=== PATIENT | female | born 1965 | race Caucasian/White ===

== ENCOUNTER 2018-12-27 13:29 | Inpatient (IN) | payer MEDICARE, OTHER ==
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
[2018-12-27 15:04] LABS: Amphetamine Screen,Urine Not Detected (NotDetected); Barbiturate Screen,Urine Not Detected (NotDetected); Benzodiazepines Screen,Urine Detected (NotDetected); Cocaine Screen,Urine Not Detected (NotDetected); Methadone Screen, Urine Not Detected (NotDetected); Opiate Screen,Urine Not Detected (NotDetected); Oxycodone Screen, Urine Not Detected (NotDetected); Phencyclidine Screen,Urine Not Detected (NotDetected); Tricyclic Antidepressant,Urine Not Detected (NotDetected); Urn Cannabinoid Scrn Detected (NotDetected)
[2018-12-27] MEDS: FOLIC ACID 1 MG TAB PO SCH (18:05)
[2018-12-27] MEDS: THIAMINE 100 MG TAB PO SCH (18:05)
[2018-12-27] MEDS: NICOTINE 21MG/24HR PATCH TRANSDERM SCH (18:05)
[2018-12-27] MEDS: ACETAMINOPHEN TAB 325 MG TAB PO PRN ×2 (18:05→22:04)
[2018-12-27] MEDS: MAG HYDROX/AL HYDROX/SIMETH 30 ML CUP PO PRN (20:45)
[2018-12-27] MEDS: LORazepam 2 MG/ML INJ IM PRN (20:55)
[2018-12-27] MEDS: LORazepam 1 MG TAB PO SCH (22:04)
[2018-12-28] MEDS: LORazepam 2 MG/ML INJ IM PRN (06:55)
[2018-12-28] MEDS: NICOTINE 21MG/24HR PATCH TRANSDERM SCH (09:03)
[2018-12-28] MEDS: THIAMINE 100 MG TAB PO SCH (09:04)
[2018-12-28] MEDS: FOLIC ACID 1 MG TAB PO SCH (09:04)
[2018-12-28] MEDS: LORazepam 1 MG TAB PO SCH (09:04)
[2018-12-28] MEDS: ACETAMINOPHEN TAB 325 MG TAB PO PRN ×2 (09:05→16:33)
[2018-12-28 09:13] LABS: Basophils % (A) 1 %; Eosinophils # (A) 0.1 k/uL (0-0.7); Eosinophils % (A) 2 %; HCT 45.4 % (34.0-46.0); HGB 14.5 gm/dL (11.4-16.0); Lymphocytes % (A) 29 %; MCH 31.2 pg (25.0-35.0); MCV 97.7 fL (80.0-100.0); Mean Platelet Volume 6.9; Monocytes # (A) 0.5 k/uL (0-1.0); Monocytes % (A) 7 %; Neutrophils % (A) 58 %; Platelet Count 323 k/uL (150-450); RBC 4.65 m/uL (3.80-5.40); RDW 13.8 % (11.5-15.5); WBC 6.9 k/uL (3.8-10.6)
[2018-12-28 09:31] LABS: ALT 27 U/L (9-52); AST 30 U/L (14-36); African American GFR (CKD) >90 (>60 ml/min/1.73 sqM); Albumin 4.4 g/dL (3.5-5.0); Alkaline Phosphatase 86 U/L (38-126); Anion Gap 7 mmol/L; Blood Urea Nitrogen 15 mg/dL (7-17); Calcium 9.4 mg/dL (8.4-10.2); Carbon Dioxide 29 mmol/L (22-30); Chloride 102 mmol/L (98-107); Cholesterol 194 mg/dL (<200); Glucose 166 mg/dL (74-99); HDL Cholesterol 103 mg/dL (40-60); LDL Cholesterol,Calculated 75 mg/dL (0-99); Potassium 4.9 mmol/L (3.5-5.1); Sodium 138 mmol/L (137-145); Total Bilirubin 0.7 mg/dL (0.2-1.3); Total Protein 7.4 g/dL (6.3-8.2); Triglycerides 82 mg/dL (<150)
[2018-12-28] MEDS: chlordiazePOXIDE 25 MG CAP PO SCH ×3 (12:34→20:42)
[2018-12-28] MEDS: MULTIVITAMINS, THERA 1 EACH TAB PO SCH (12:34)
[2018-12-28] MEDS: LORazepam 1 MG TAB PO PRN ×4 (12:36→22:47)
[2018-12-28] MEDS: ALBUTEROL INHALER 60 PUFF/8 GM INHALER INHALATION PRN (12:37)
--- NOTE | 2018-12-28 13:56 | P.HP ---
Psychiatric H&P - . H&P Date: 12/28/18 History & Physical: Allergies Allergy/AdvReac Type Severity Reaction Status Date / Time erythromycin base Allergy Unknown Verified 12/27/18 14:44 Penicillins Allergy Rash/Hives Verified 12/27/18 14:44 Sulfa (Sulfonamide Allergy Unknown Verified 12/27/18 14:44 Antibiotics) venom-honey bee Allergy Anaphylaxis Verified 12/27/18 14:44 [bee venom (honey bee)] Vital Signs Temp 97.5 F L 12/28/18 06:33 Pulse 118 H 12/28/18 12:36 Resp 18 12/28/18 10:06 BP 135/56 12/28/18 12:36 Pulse Ox 97 12/27/18 13:41 Intake & Output 12/27/18 12/28/18 12/28/18 18:59 06:59 18:59 Weight 70.959 kg Laboratory Last Values WBC 6.9 k/uL (3.8-10.6) 12/28/18 08:50 RBC 4.65 m/uL (3.80-5.40) 12/28/18 08:50 Hgb 14.5 gm/dL (11.4-16.0) 12/28/18 08:50 Hct 45.4 % (34.0-46.0) 12/28/18 08:50 MCV 97.7 fL (80.0-100.0) 12/28/18 08:50 MCH 31.2 pg (25.0-35.0) 12/28/18 08:50 MCHC 32.0 g/dL (31.0-37.0) 12/28/18 08:50 RDW 13.8 % (11.5-15.5) 12/28/18 08:50 Plt Count 323 k/uL (150-450) 12/28/18 08:50 Neutrophils % 58 % 12/28/18 08:50 Lymphocytes % 29 % 12/28/18 08:50 Monocytes % 7 % 12/28/18 08:50 Eosinophils % 2 % 12/28/18 08:50 Basophils % 1 % 12/28/18 08:50 Neutrophils # 4.0 k/uL (1.3-7.7) 12/28/18 08:50 Lymphocytes # 2.0 k/uL (1.0-4.8) 12/28/18 08:50 Monocytes # 0.5 k/uL (0-1.0) 12/28/18 08:50 Eosinophils # 0.1 k/uL (0-0.7) 12/28/18 08:50 Basophils # 0.0 k/uL (0-0.2) 12/28/18 08:50 Sodium 138 mmol/L (137-145) 12/28/18 08:50 Potassium 4.9 mmol/L (3.5-5.1) 12/28/18 08:50 Chloride 102 mmol/L (98-107) 12/28/18 08:50 Carbon Dioxide 29 mmol/L (22-30) 12/28/18 08:50 Anion Gap 7 mmol/L 12/28/18 08:50 BUN 15 mg/dL (7-17) 12/28/18 08:50 Creatinine 0.64 mg/dL (0.52-1.04) 12/28/18 08:50 Est GFR (CKD-EPI)AfAm >90 (>60 ml/min/1.73 sqM) 12/28/18 08:50 Est GFR (CKD-EPI)NonAf >90 (>60 ml/min/1.73 sqM) 12/28/18 08:50 Glucose 166 mg/dL (74-99) H 12/28/18 08:50 Calcium 9.4 mg/dL (8.4-10.2) 12/28/18 08:50 Total Bilirubin 0.7 mg/dL (0.2-1.3) 12/28/18 08:50 AST 30 U/L (14-36) 12/28/18 08:50 ALT 27 U/L (9-52) 12/28/18 08:50 Alkaline Phosphatase 86 U/L (38-126) 12/28/18 08:50 Total Protein 7.4 g/dL (6.3-8.2) 12/28/18 08:50 Albumin 4.4 g/dL (3.5-5.0) 12/28/18 08:50 Triglycerides 82 mg/dL (<150) 12/28/18 08:50 Cholesterol 194 mg/dL (<200) 12/28/18 08:50 LDL Cholesterol, Calc 75 mg/dL (0-99) 12/28/18 08:50 HDL Cholesterol 103 mg/dL (40-60) H 12/28/18 08:50 TSH 4.190 mIU/L (0.465-4.680) 12/28/18 08:50 Urine Opiates Screen Not Detected (NotDetected) 12/27/18 14:22 Ur Oxycodone Screen Not Detected (NotDetected) 12/27/18 14:22 Urine Methadone Screen Not Detected (NotDetected) 12/27/18 14:22 Ur Propoxyphene Screen Not Detected (NotDetected) 12/27/18 14:22 Ur Barbiturates Screen Not Detected (NotDetected) 12/27/18 14:22 U Tricyclic Antidepress Not Detected (NotDetected) 12/27/18 14:22 Ur Phencyclidine Scrn Not Detected (NotDetected) 12/27/18 14:22 Ur Amphetamines Screen Not Detected (NotDetected) 12/27/18 14:22 U Methamphetamines Scrn Not Detected (NotDetected) 12/27/18 14:22 U Benzodiazepines Scrn Detected (NotDetected) H 12/27/18 14:22 Urine Cocaine Screen Not Detected (NotDetected) 12/27/18 14:22 U Marijuana (THC) Screen Detected (NotDetected) H 12/27/18 14:22 12/28/18 12:59 IDENTIFYING DATA: Patient is a 53-year-old female with a chronic history of depression and alcohol use who currently lives with her sister in a house has 2 kids and 4 grandchildren is and currently collecting SSD HPI: Patient presented to the hospital was brought in by her sister due to patient's increased alcohol intake along with depression and suicidal ideations. Patient stated that for the past year she has been increasing in her alcoholic intake stating that he is drinking approximately 3-4 X 25 ounce beers in a day along with 1 pint of vodka every 2 days. She states that she is beginning to feel depressed and hopeless/helpless and feeling overwhelmed. She states that she became belligerent yesterday as she was intoxicated and attempted to call her sister who did not answer the phone and states that after that she felt even more depressed and wanted to come to the hospital for evaluation. Patient states that for the past year she has dealt with her friends dying in [place], whom she was taking good care of. Patient also claims that her best friend was recently diagnosed with cancer and she is attempting to help her out and feels worn out. Patient claims that she is taking on all the stressors and feels like she has no time or energy for herself. Patient claims that she is both depressed and anxious and was tearful and emotional during the interview. Patient claims that her last drink of alcohol was yesterday morning and although she denies any previous history of delirium tremens or seizures from withdrawal she is experiencing significant tremors and anxiety at this time. Patient claims that she wants to live for her family and also for her kids and grandchildren. At this time patient claims that her sleep is poor and her appetite is poor as well. Patient denies any suicidal or homicidal ideations intent or plan. At this time patient denies any auditory or visual hallucinations. Patient denies any flight of ideas racing thoughts and increased in goal directed behavior. Patient admits to also using marijuana approximately 1-2 joints per day for sleep and pain and also claims to be smoking cigarettes 1 pack a day PAST PSYCHIATRIC HISTORY: Patient admits to 3 previous hospitalizations in the past 1997, 2008 and 2014 2 of which were in [place]. Patient admitted to being on Cymbalta Xanax and Klonopin in the past for her anxiety and depression. Patient claims that she has been off psychiatric medications for over a year and does not follow up with a psychiatrist. PMH: COPD ALLERGIES: As per EMR CHEMICAL DEPENDENCY HISTORY: As per HPI FAMILY PSYCHIATRIC/SUBSTANCE USE HISTORY: Claims that her father suffered from depression and her sister suffers from anxiety SOCIAL HISTORY: She claims that she was born and raised in [facility] and has completed high school. 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 She is currently has 2 kids and 4 grandchildren and lives with her sister in a house and collects SSD. MENTAL STATUS EXAM: General Appearance: [Patient appears to be stated age is alert, pleasant, and cooperative.] Patient has poor hygiene and poor grooming and appears to be t earful. Behavior: [Patient is calmly seated without any agitated behavior.] Appears to be tremulous Speech: Patient's speech is fluent and nonpressured. Mood/Affect: Patient reports their mood is depressed, affect is congruent and constricted, tearful Suicidality/Homicidality: Patient denies having any suicidal or homicidal ideation intent or plan. Perceptions: Patient denies any auditory or visual hallucinations. Though content/process: There is no evidence of any delusional thought content and thought process is linear and goal-directed. Depressive content. Memory and concentration: AOX3, grossly intact for the purposes of this session. Can spell "WORLD" backwards Judgment and insight: Poor STRENGTHS/WEAKNESSES: Patient has good social support. Patient also has poor coping skills. INTELLECT: Average intellect IMPRESSIONS: Depressive disorder unspecified Alcohol use disorder, currently in withdrawal PLAN: -Patient is admitted under [voluntary] status to MHU for stabilization of psychiatric symptoms and safety. Patient signed adult voluntary form and medication consent and is placed in patient's chart. -Medications : Will start patient on and Zoloft 50 mg daily at bedtime for mood/anxiety. Melatonin 3 mg daily at bedtime for insomnia. We'll also start patient on standing dose of Librium 25 mg 4 times a day for alcohol withdrawal. Patient is currently on CIWA every 2 hours with Ativan when necessary. [-Started thiamine, MVM for etoh use] [-Patient was counselled on substance abuse and desired to cut back on use]. Will speak with patient more about different treatment options at a later time. -Patient was informed of the risks, benefits and side effects of the medication and patient verbally consented to taking the medications. Patient signed med consent form and was placed in chart. -NRT -nicotine patch - on board for discharge planning 12/28/18 13:44
--- NOTE | 2018-12-28 14:50 | P.MDCNMH ---
History of Present Illness H&P Date: 12/28/18 Chief Complaint: Medical management This is a 53-year-old male patient of Dr. Jaime although she has not followed up with Dr. Jaime in some time. She has a past medical history of mild intermittent asthma, COPD, fibromyalgia, generalized anxiety disorder, recurrent depression, tobacco use and dependence, alcohol abuse. The patient gives history of drinking heavily for the past 10-15 years. She usually drinks beer but sometimes will drink half to a full pint of liquor. She states she has been without alcohol for 2 days now and feels very anxious with nausea for the past couple days. She complains of her legs feeling jumpy. She has been on iron which may help. In the past, patient has tried abstinence from alcohol and she only makes it about 3-4 days and then goes back to drinking. She has tried AA and does not like the meetings. She is also complaining of feeling shaky with cold sweats and she is tearful during evaluation. She states that she started drinking heavily when her mother and then her stop father had and last week her dog . She states she is caring for a girlfriend that has cancer and she does not spend time for herself and when she does have time she chooses to drink. Patient came into [facility] emergency center for evaluation. Patient was found to be sinus tachycardia. X-ray of the right elbow showed no acute process. Urine drug screen detected benzodiazepines and marijuana. CBC was unremarkable. Blood sugar 166. Triglycerides 82, cholesterol 194, LDL 75, HDL 103, TSH 4.190. Patient was subsequently admitted to the mental health unit. Review of Systems Constitutional: Reports fatigue, Reports malaise, Reports poor appetite, Reports sweats, Reports weakness Eyes: denies blurred vision, denies pain Ears, nose, mouth and throat: Denies dental pain, Denies nasal congestion, Denies nasal discharge, Denies vertigo Cardiovascular: Denies chest pain, Denies dyspnea on exertion, Denies edema, Denies leg edema, Denies shortness of breath, Denies syncope Respiratory: Denies congestion, Denies cough, Denies cough with sputum, Denies dyspnea, Denies excessive sputum, Denies hemoptysis, Denies home oxygen, Denies wheezing Gastrointestinal: Reports loss of appetite, Reports nausea, Denies abdominal pain, Denies diarrhea, Denies vomiting Genitourinary: Denies dysuria, Denies hematuria, Denies urgency, Denies urinary frequency Musculoskeletal: Denies frequent falls, Denies gait dysfunction, Denies muscle weakness, Denies myalgias Integumentary: Denies pruritus, Denies rash Neurological: Denies change in mentation, Denies confusion, Denies gait dysfunction, Denies numbness, Denies seizures, Denies weakness Psychiatric: Reports anxiety, Reports depression, Denies disorientation, Denies hallucinations, Denies suicidal ideation Endocrine: Denies fatigue, Denies weight change Past Medical History Past Medical History: Asthma, COPD, Fibromyalgia Additional Past Medical History / Comment(s): anxiety History of Any Multi-Drug Resistant Organisms: MRSA Date of last positivie culture/infection: 1999 MDRO Source:: buttocks Past Surgical History: Section, Hysterectomy, Tubal Ligation Past Anesthesia/Blood Transfusion Reactions: No Reported Reaction Past Psychological History: Anxiety, Bipolar, Depression Smoking Status: Heavy tobacco smoker Past Alcohol Use History: Daily Additional Past Alcohol Use History / Comment(s): Patient is a smoker of 1 PPD for 40-45 years, marijuana joint 1 per day for pain, no illicit drug use. Past Drug Use History: Marijuana - Past Family History Father Family Medical History: Cancer (Throat) Additional Family Medical History / Comment(s): Father from throat cancer. He also suffered from depression and attempted suicide. Mother Family Medical History: Congestive Heart Failure (CHF), COPD Additional Family Medical History / Comment(s): Mother is from heart failure with probable history of bipolar disorder. Sister(s) Family Medical History: COPD Additional Family Medical History / Comment(s): Patient has 2 sisters one with COPD and one with depression. Patient does not have any brothers. Daughter(s) Family Medical History: Asthma Son(s) Family Medical History: No Reported History Medications and Allergies Home Medications Medication Instructions Recorded Confirmed Type ALPRAZolam [Xanax] 0.5 mg PO ONCE 12/27/18 12/27/18 History Ibuprofen [Motrin] 800 mg PO DAILY PRN 12/27/18 12/27/18 History diphenhydrAMINE [Benadryl] 25 mg PO HS PRN 12/27/18 12/27/18 History Allergies Allergy/AdvReac Type Severity Reaction Status Date / Time erythromycin base Allergy Unknown Verified 12/27/18 14:44 Penicillins Allergy Rash/Hives Verified 12/27/18 14:44 Sulfa (Sulfonamide Allergy Unknown Verified 12/27/18 14:44 Antibiotics) venom-honey bee Allergy Anaphylaxis Verified 12/27/18 14:44 [bee venom (honey bee)] Physical Exam Vitals: Vital Signs Temp Pulse Pulse Resp BP BP BP 12/28/18 10:06 117 H 18 129/82 12/28/18 06:33 97.5 F L 76 18 145/63 12/27/18 20:47 116 H 20 137/67 12/27/18 17:10 97.9 F 103 H 18 101/74 12/27/18 15:10 97.9 F 103 H 18 101/74 12/27/18 13:41 98.5 F 127 H 18 138/83 Pulse Ox 12/28/18 10:06 12/28/18 06:33 12/27/18 20:47 12/27/18 17:10 12/27/18 15:10 12/27/18 13:41 97 Intake and Output 12/27/18 12/28/18 12/28/18 22:59 06:59 14:59 Other: Weight 70.959 kg Gen: This is a 53-year-old female. Patient is tearful during part of exam. Otherwise, no acute distress is noted. HEENT: Head is atraumatic, normocephalic. Pupils equal, round. Sclerae is anicteric. NECK: Supple. No JVD. No lymphadenopathy. No thyromegaly. LUNGS: Clear to auscultation. No wheezes or rhonchi. No intercostal retract ions. HEART: Regular rate and rhythm. No murmur. ABDOMEN: Soft. Bowel sounds are present. No masses. No tenderness. EXTREMITIES: No pedal edema. No calf tenderness. NEUROLOGICAL: Patient is awake, alert and oriented x3. Cranial nerves 2 through 12 are grossly intact. Cranial Nerve Examination - Cranial Nerves Cranial Nerve I- Olfactory: Intact Cranial Nerve II- Optic: Intact Cranial Nerve III- Oculomotor: Intact Cranial Nerve IV- Trochlear: Intact Cranial Nerve V- Trigeminal: Intact Cranial Nerve - Abducens: Intact Cranial Nerve VII- Facial: Intact Cranial Nerve VIII- Auditory: Intact Cranial Nerve IX- Glossopharyngeal: Intact Cranial Nerve X- Vagus: Intact Cranial Nerve XI- Accessory: Intact Cranial Nerve XII- Hypoglossal: Intact Results CBC & Chem 7: 12/28/18 08:50 12/28/18 08:50 Labs: Abnormal Lab Results - Last 24 Hours (Table) 12/27/18 12/28/18 Range/Units 14:22 08:50 Glucose 166 H (74-99) mg/dL HDL Cholesterol 103 H (40-60) mg/dL U Benzodiazepines Scrn Detected H (NotDetected) U Marijuana (THC) Screen Detected H (NotDetected) Assessment and Plan Plan: 1. Alcohol abuse. Continue thiamine 100 mg daily. Ativan for CIWA protocol, Librium 25 mg 4 times daily. 2. Recurrent depression. Patient admitted to the mental health unit. Continue current plan of care 3. Tobacco use and dependence. Nicotine patch. 4. Elevated blood sugar without history of DM. Check hemoglobin A1c. 5. COPD without exacerbation and mild intermittent asthma. Albuterol inhaler, symbicort inhaler. Discharge plan: Return home. Patient follow-up with Dr. Jaime after discharge. Impression and plan of care have been directed as dictated by the signing physician. Hina Patrick nurse practitioner acting as scribe for signing physician.
[2018-12-28 19:53] LABS: Hemoglobin A1C 5.6 % (4.0-6.0)
[2018-12-28] MEDS: MELATONIN 3 MG TABLET PO SCH (20:42)
[2018-12-28] MEDS: SYMBICORT 160-4.5 MCG INHALER INHALATION SCH (20:45)
[2018-12-28] MEDS ORDERED: SERTRALINE 50 MG TAB PO SCH (21:00)
[2018-12-29] MEDS: LORazepam 1 MG TAB PO PRN ×6 (01:21→22:51)
[2018-12-29] MEDS: SYMBICORT 160-4.5 MCG INHALER INHALATION SCH ×2 (08:13→20:57)
[2018-12-29] MEDS: NICOTINE 21MG/24HR PATCH TRANSDERM SCH (08:13)
[2018-12-29] MEDS: THIAMINE 100 MG TAB PO SCH (08:14)
[2018-12-29] MEDS: MULTIVITAMINS, THERA 1 EACH TAB PO SCH (08:14)
[2018-12-29] MEDS: FOLIC ACID 1 MG TAB PO SCH (08:14)
[2018-12-29] MEDS: chlordiazePOXIDE 25 MG CAP PO SCH ×4 (08:14→20:58)
[2018-12-29] MEDS: ACETAMINOPHEN TAB 325 MG TAB PO PRN (08:17)
[2018-12-29] MEDS: ALBUTEROL INHALER 60 PUFF/8 GM INHALER INHALATION PRN ×2 (11:23→14:48)
--- NOTE | 2018-12-29 12:07 | P.PN ---
Progress Note - Text Progress Note Date: 12/29/18 Interval History: Patient was seen wandering the hallways and was agreeable to speak to marine underwriter in the office. Patient today appears to be tearful and states that she spoke with her sister yesterday who agreed to come and bring her clothes and also activities for her to do on the unit however patient states that she canceled on her and now patient is tearful and was catastrophize an with all or none thinking stay stating that "she doesn't love me the whole world hates me". Patient states that her anxiety continues to be elevated and states that her mood is depressed. Patient also claims that she has a headache and states that only ibuprofen helps her not acetaminophen. She states that she had poor sleep last night. She complains of some tremors and her heart racing from the withdrawal symptoms. At this time patient denies any suicidal or homical ideations, intent or plan. Patient denies any auditory, visual hallucinations and denies any paranoia or delusions. Patient denies any side effects from the medications and has been compliant with meds. Mental Status Exam: General Appearance: Patient appears to be stated age is alert, pleasant, and cooperative. Patient has poor hygiene and poor grooming and appears to be tearful. Behavior: Patient is calmly seated without any agitated behavior. Appears to be somewhat tremulous Speech: Patient's speech is fluent and nonpressured. Mood/Affect: Patient reports their mood is "depressed", affect is congruent and constricted, tearful Suicidality/Homicidality: Patient denies having any suicidal or homicidal ideation intent or plan. Perceptions: Patient denies any auditory or visual hallucinations. Though content/process: There is no evidence of any delusional thought content and thought process is linear and goal-directed. Catastrophize an with all or none thinking. Memory and concentration: AOX3, grossly intact for the purposes of this session. Judgment and insight: Poor Assessment Depressive disorder unspecified Alcohol use disorder, currently in withdrawal Plan: -Patient continues to meet criteria for inpatient psychiatric admission for symptom stabilization and safety. Patient has signed the adult voluntary form along with medication consent which is placed in patient's chart. -Medications: Will continue increasing Zoloft to 100 mg nightly for mood/anxiety. We'll continue with melatonin 3 mg nightly for insomnia. Will increase Librium to 50 mg 3 times a day for alcohol withdrawal. Patient has been receiving Ativan when necessary for alcohol withdrawal, will continue to monitor and continue same Ativan dosing. -continue with thiamine, MVM for etoh use -NRT -nicotine patch -SW on board for discharge planning. Will be encouraging patient to go to rehab upon stabilization.
[2018-12-29] MEDS: IBUPROFEN 600 MG TAB PO PRN ×2 (12:16→18:00)
[2018-12-29] MEDS: MAG HYDROX/AL HYDROX/SIMETH 30 ML CUP PO PRN (15:39)
[2018-12-29] MEDS ORDERED: LORazepam 1 MG TAB PO PRN (20:49)
[2018-12-29] MEDS ORDERED: SERTRALINE 100 MG TAB PO SCH (21:00)
[2018-12-29] MEDS: MELATONIN 3 MG TABLET PO SCH (21:27)
[2018-12-30] MEDS: MULTIVITAMINS, THERA 1 EACH TAB PO SCH (08:34)
[2018-12-30] MEDS: NICOTINE 21MG/24HR PATCH TRANSDERM SCH (08:34)
[2018-12-30] MEDS: THIAMINE 100 MG TAB PO SCH (08:34)
[2018-12-30] MEDS: FOLIC ACID 1 MG TAB PO SCH (08:34)
[2018-12-30] MEDS: SYMBICORT 160-4.5 MCG INHALER INHALATION SCH ×2 (08:34→21:21)
[2018-12-30] MEDS: chlordiazePOXIDE 25 MG CAP PO SCH ×4 (08:37→21:25)
[2018-12-30] MEDS: LORazepam 1 MG TAB PO PRN ×3 (09:13→20:29)
[2018-12-30] MEDS ORDERED: chlordiazePOXIDE 25 MG CAP PO SCH (10:45)
--- NOTE | 2018-12-30 11:42 | P.PN ---
Progress Note - Text Progress Note Date: 12/30/18 Interval History: Patient was seen wandering the hallways and was agreeable to speak to chart writer in the office. Patient today appeared to be less tearful and continues to be preoccupied with her sister "letting me down" as she was not able to show up to the unit yesterday to bring her her staff. Patient continues to catastrophize and needed to be redirected several times. Patient also is preoccupied with her anxiety however claims that it has improved since yesterday. Patient is denying any tremors at this time however is continuing to withdrawal from alcohol. She states that she had poor sleep last night once again however states that Librium did help. At this time patient denies any suicidal or homical ideations, intent or plan. Patient denies any auditory, visual hallucinations and denies any paranoia or delusions. Patient denies any side effects from the medications and has been compliant with meds. Patient continues to have poor insight into her substance use. Mental Status Exam: General Appearance: Patient appears to be stated age is alert, pleasant, and cooperative. Patient has poor hygiene and poor grooming and appears to be tearful. Behavior: Patient is calmly seated without any agitated behavior. Appears to be much calmer with regards to her anxiety. Speech: Patient's speech is fluent and nonpressured. Mood/Affect: Patient reports their mood is "a bit better", affect is congruent and constricted Suicidality/Homicidality: Patient denies having any suicidal or homicidal ideation intent or plan. Perceptions: Patient denies any auditory or visual hallucinations. Though content/process: There is no evidence of any delusional thought content and thought process is linear and goal-directed. Catastrophizes. Memory and concentration: AOX3, grossly intact for the purposes of this session. Judgment and insight: Poor, improving mildly Assessment Depressive disorder unspecified Alcohol use disorder, currently in withdrawal Plan: -Patient continues to meet criteria for inpatient psychiatric admission for symptom stabilization and safety. Patient has signed the adult voluntary form along with medication consent which is placed in patient's chart. -Medications: Will switch Zoloft to 100 mg to dosing in the morning as patient claims that this may be causing her poor sleep. We'll discontinue melatonin as patient claims that it causes her weight gain. Will decrease Librium to 25 mg 4 times a day for alcohol withdrawal. WILBUR decreased to every 6 hours for alcohol withdrawal. -continue with thiamine, MVM for etoh use -NRT -nicotine patch -SW on board for discharge planning. Will be encouraging patient to go to rehab upon stabilization. Patient continues to have poor insight into her substance use.
[2018-12-30] MEDS: IBUPROFEN 600 MG TAB PO PRN (14:48)
[2018-12-30] MEDS: ALBUTEROL INHALER 60 PUFF/8 GM INHALER INHALATION PRN (14:51)
[2018-12-30] MEDS: hydrOXYzine PAMOATE 25 MG CAP PO SCH (20:29)
[2018-12-31] MEDS: THIAMINE 100 MG TAB PO SCH (08:38)
[2018-12-31] MEDS: FOLIC ACID 1 MG TAB PO SCH (08:38)
[2018-12-31] MEDS: NICOTINE 21MG/24HR PATCH TRANSDERM SCH (08:38)
[2018-12-31] MEDS: SERTRALINE 100 MG TAB PO SCH (08:38)
[2018-12-31] MEDS: MULTIVITAMINS, THERA 1 EACH TAB PO SCH (08:38)
[2018-12-31] MEDS: chlordiazePOXIDE 25 MG CAP PO SCH ×4 (08:38→21:37)
[2018-12-31] MEDS: SYMBICORT 160-4.5 MCG INHALER INHALATION SCH ×2 (08:39→20:16)
[2018-12-31] MEDS: ALBUTEROL INHALER 60 PUFF/8 GM INHALER INHALATION PRN ×2 (08:39→17:18)
[2018-12-31] MEDS: LORazepam 1 MG TAB PO PRN ×3 (08:42→20:16)
[2018-12-31] MEDS: IBUPROFEN 600 MG TAB PO PRN (09:34)
[2018-12-31] MEDS: MAGNESIUM HYDROXIDE 2,400 MG/10 ML CUP PO PRN (09:35)
--- NOTE | 2018-12-31 13:15 | P.PN ---
Progress Note - Text Progress Note Date: 12/31/18 Interval history: Patient is seen in cross coverage today. She makes reference to not sleeping well. She describes a lot of anxiety as well as irritability. She seems to us describe still some shakiness accompanying withdrawal, her vital signs are not showing elevated blood pressure or pulse. She describes being upset regarding her session yesterday being interrupted and then not continuing and her needing to verbalize a lot of things to her physician. She is encouraged to talk to him on Wednesday. Mental status exam: She is alert and cooperative with the interview. She does not verbalize any thoughts of harm to self or others. Regarding her mood she describes irritability. She does not show any active evidence of psychosis. She does not show any significant level of agitation. Plan: Patient will be maintained on current psychotropic medication regimen. Her Zoloft has been increased it appears and she has been started on Vistaril at bedtime. We'll monitor how she responds to medication changes continue to monitor for any alcohol withdrawal. We'll continue to cover this patient to the weekend.
[2018-12-31] MEDS: hydrOXYzine PAMOATE 25 MG CAP PO SCH (20:16)
[2019-01-01] MEDS: NICOTINE 21MG/24HR PATCH TRANSDERM SCH (08:40)
[2019-01-01] MEDS: SERTRALINE 100 MG TAB PO SCH (08:41)
[2019-01-01] MEDS: THIAMINE 100 MG TAB PO SCH (08:41)
[2019-01-01] MEDS: MULTIVITAMINS, THERA 1 EACH TAB PO SCH (08:41)
[2019-01-01] MEDS: chlordiazePOXIDE 25 MG CAP PO SCH ×4 (08:41→20:41)
[2019-01-01] MEDS: FOLIC ACID 1 MG TAB PO SCH (08:41)
[2019-01-01] MEDS: ALBUTEROL INHALER 60 PUFF/8 GM INHALER INHALATION PRN ×2 (08:42→17:19)
[2019-01-01] MEDS: SYMBICORT 160-4.5 MCG INHALER INHALATION SCH ×2 (08:42→19:54)
[2019-01-01] MEDS: IBUPROFEN 600 MG TAB PO PRN (12:15)
[2019-01-01] MEDS: LORazepam 1 MG TAB PO PRN (14:07)
--- NOTE | 2019-01-01 14:48 | P.PN ---
Progress Note - Text Progress Note Date: 01/01/19 Interval history: Patient is seen again in cross coverage today. She reports that she barely slept last night. She says the Vistaril does help calm her stomach. She has taken trazodone in the past, relays that it had some impact on her blood sugar. Her hemoglobin A1c was normal during this admission. Mental status exam: She is alert and cooperative with the interview her speech is fluent, not rapid or pressured. She describes her mood as not doing well and also describes ongoing anxiety. She feels like she still going through some withdrawals. She denies any thoughts of harm to self. There is no evidence of psychosis. Plan: At this time we'll discontinue Vistaril and give 1 dose of trazodone tonight to see if this can help her with sleep. We'll maintain other current psychotropic medications at this time. Continue to monitor her ongoing response to treatment monitor for any medication side effects.
[2019-01-01] MEDS: MAGNESIUM HYDROXIDE 2,400 MG/10 ML CUP PO PRN (19:53)
[2019-01-01] MEDS ORDERED: traZODone HCL 50 MG TAB PO ONE (21:00)
[2019-01-02] MEDS: THIAMINE 100 MG TAB PO SCH (07:58)
[2019-01-02] MEDS: NICOTINE 21MG/24HR PATCH TRANSDERM SCH (07:58)
[2019-01-02] MEDS: chlordiazePOXIDE 25 MG CAP PO SCH ×2 (07:58→20:59)
[2019-01-02] MEDS: MULTIVITAMINS, THERA 1 EACH TAB PO SCH (07:58)
[2019-01-02] MEDS: SERTRALINE 100 MG TAB PO SCH (07:58)
[2019-01-02] MEDS: FOLIC ACID 1 MG TAB PO SCH (07:58)
[2019-01-02] MEDS: SYMBICORT 160-4.5 MCG INHALER INHALATION SCH ×2 (08:00→20:58)
[2019-01-02] MEDS: MAGNESIUM HYDROXIDE 2,400 MG/10 ML CUP PO PRN (10:36)
[2019-01-02] MEDS: IBUPROFEN 600 MG TAB PO PRN (11:30)
--- NOTE | 2019-01-02 12:06 | P.PN ---
Progress Note - Text Progress Note Date: 01/02/19 Interval History: Patient was seen in her room and was agreeable to speak to gag writer in the office. Patient today appeared to be tearful and continues to be preoccupied with her medications and fears of abandonment. Patient states that her weekend was not good and claims that she wants to be taken off Zoloft and she feels it is not helping her. Patient continues to catastrophize and needed to be redirected several times. Patient also is preoccupied with her anxiety and asked several times for Ativan and Klonopin. Patient is denying any tremors at this time and her vital signs appeared to be stable. She states that she had poor sleep last night and claimed that the trazodone did help however requires and asked for a higher dose. At this time patient denies any suicidal or homical ideations, intent or plan. Patient denies any auditory, visual hallucinations and denies any paranoia or delusions. Patient denies any side effects from the medications and has been compliant with meds. Patient continues to have poor insight into her substance use and states that she has not been going to groups. Mental Status Exam: General Appearance: Patient appears to be stated age is alert, pleasant, and cooperative. Patient has poor hygiene and poor grooming and appears to be tearful. Behavior: Patient is calmly seated without any agitated behavior. Speech: Patient's speech is fluent and nonpressured. Mood/Affect: Patient reports their mood is "not good", affect is congruent and appears to be tearful. Suicidality/Homicidality: Patient denies having any suicidal or homicidal ideation intent or plan. Perceptions: Patient denies any auditory or visual hallucinations. Though content/process: There is no evidence of any delusional thought content and thought process is linear and goal-directed. Catastrophizes with fears of abandonment. Memory and concentration: AOX3, grossly intact for the purposes of this session. Judgment and insight: Poor Assessment Depressive disorder unspecified Alcohol use disorder Plan: -Patient continues to meet criteria for inpatient psychiatric admission for symptom stabilization and safety. Patient has signed the adult voluntary form along with medication consent which is placed in patient's chart. -Medications: Will switch Zoloft to Cymbalta 30 mg daily with plan to increase as tolerated. Will decrease Librium to 25 mg 2 times a day for alcohol withdrawal. CIWA will be discontinued at this time. Patient is agreeable to start Vistaril 25 mg every 8 hours when necessary for anxiety. Patient is also agreeable to restart at a higher dose trazodone at 75 mg daily at bedtime for insomnia and mood. -continue with thiamine, MVM for etoh use -NRT -nicotine patch -SW on board for discharge planning. Continuing to encourage patient to go to rehab upon stabilization. Patient continues to have poor insight into her substance use.
[2019-01-02] MEDS: hydrOXYzine PAMOATE 25 MG CAP PO PRN ×2 (12:09→21:00)
[2019-01-02] MEDS ORDERED: traZODone HCL 50 MG TAB PO SCH (21:00)
[2019-01-03] MEDS: DULoxetine HCL 30 MG CAPSULE.DR PO SCH (08:49)
[2019-01-03] MEDS: FOLIC ACID 1 MG TAB PO SCH (08:49)
[2019-01-03] MEDS: THIAMINE 100 MG TAB PO SCH (08:49)
[2019-01-03] MEDS: chlordiazePOXIDE 25 MG CAP PO SCH (08:49)
[2019-01-03] MEDS: NICOTINE 21MG/24HR PATCH TRANSDERM SCH (08:49)
[2019-01-03] MEDS: MULTIVITAMINS, THERA 1 EACH TAB PO SCH (08:49)
[2019-01-03] MEDS: SYMBICORT 160-4.5 MCG INHALER INHALATION SCH ×2 (08:50→21:41)
[2019-01-03] MEDS: hydrOXYzine PAMOATE 25 MG CAP PO PRN ×3 (08:50→21:41)
[2019-01-03] MEDS ORDERED: ACETAMINOPHEN TAB 325 MG TAB PO PRN (10:30)
[2019-01-03] MEDS: IBUPROFEN 600 MG TAB PO PRN ×2 (10:55→17:55)
[2019-01-03] MEDS: CHOLECALCIFEROL 1,000 UNIT TAB PO SCH (10:55)
--- NOTE | 2019-01-03 11:40 | P.PN ---
Progress Note - Text Progress Note Date: 01/03/19 Interval History: Patient was seen in the hallways and was agreeable to speak to narrative writer in the o ffice. Patient today appeared to be less tearful and more directable/cooperative during the interview. Patient continues to be preoccupied with her medications and treatment of her anxiety and today was asking about benzodiazepines including clonazepam and Ativan. She states that she had poor sleep last night and claimed that the trazodone didnt help her get to sleep and is requesting an increase in the dose. Today patient appeared to be more future oriented and spoke about wanting to see her grandkids again in [place] and also that her sister and daughters want her to get into rehab and patient claims that she did have a good experience in a rehab in [place] which she would like to go back to upon discharge. At this time patient denies any suicidal or homical ideations, intent or plan. Patient denies any auditory, visual hallucinations and denies any paranoia or delusions. Patient denies any side effects from the medications and has been compliant with meds. Mental Status Exam: General Appearance: Patient appears to be stated age is alert, pleasant, and cooperative. Patient has improved hygiene & grooming and appears to be less tearful. Behavior: Patient is calmly seated without any agitated behavior. Speech: Patient's speech is fluent and nonpressured. Mood/Affect: Patient reports their mood is "better", affect is congruent and is less tearful. Suicidality/Homicidality: Patient denies having any suicidal or homicidal ideation intent or plan. Perceptions: Patient denies any auditory or visual hallucinations. Though content/process: There is no evidence of any delusional thought content and thought process is linear and goal-directed. Preoccupied with anxiety and benzodiazepines. Memory and concentration: AOX3, grossly intact for the purposes of this session. Judgment and insight: Poor, improving mildly. Assessment Depressive disorder unspecified Alcohol use disorder Plan: -Patient continues to meet criteria for inpatient psychiatric admission for symp ailyn stabilization and safety. Patient has signed the adult voluntary form along with medication consent which is placed in patient's chart. -Medications: Will continue with Cymbalta 30 mg daily for mood. Will discontinue Librium at this time for alcohol withdrawal this patient's vital signs appeared to be stable now. Increased Vistaril 25 mg every 6 hours when necessary for anxiety. Increased trazodone to 100 mg daily at bedtime for insomnia and mood. -continue with thiamine, MVM for etoh use -NRT -nicotine patch -SW on board for discharge planning. Continuing to encourage patient to go to rehab upon stabilization. Patient states that she would like to go to rehab in [place] to be closer to her kids and be away from her environmental triggers in the area where she is at now.
[2019-01-03] MEDS ORDERED: HALOPERIDOL LACTATE 5 MG/ML 1 ML VIAL IM PRN (16:52)
[2019-01-03] MEDS ORDERED: traZODone HCL 100 MG TAB PO SCH (21:00)
[2019-01-04] MEDS: NICOTINE 21MG/24HR PATCH TRANSDERM SCH (08:43)
[2019-01-04] MEDS: MULTIVITAMINS, THERA 1 EACH TAB PO SCH (08:44)
[2019-01-04] MEDS: FOLIC ACID 1 MG TAB PO SCH (08:44)
[2019-01-04] MEDS: CHOLECALCIFEROL 1,000 UNIT TAB PO SCH (08:44)
[2019-01-04] MEDS: THIAMINE 100 MG TAB PO SCH (08:44)
[2019-01-04] MEDS: SYMBICORT 160-4.5 MCG INHALER INHALATION SCH ×2 (08:44→21:44)
[2019-01-04] MEDS: DULoxetine HCL 30 MG CAPSULE.DR PO SCH (08:44)
[2019-01-04] MEDS: hydrOXYzine PAMOATE 25 MG CAP PO PRN ×3 (08:45→23:03)
[2019-01-04] MEDS: IBUPROFEN 600 MG TAB PO PRN ×2 (11:48→21:44)
[2019-01-04] MEDS ORDERED: hydrOXYzine PAMOATE 25 MG CAP PO PRN (13:34)
[2019-01-04] MEDS ORDERED: DULoxetine HCL 60 MG CAPSULE.DR PO SCH (13:45)
--- NOTE | 2019-01-04 13:57 | P.PN ---
Progress Note - Text Progress Note Date: 01/04/19 Interval History: Patient was seen in the hallways after she finished her lunch and was agreeable to speak to ad copy writer in the office. She was noted to be eating lunch calmly with other patients and conversing and appeared to be in no distress. Continued to be demanding and focused on her medications to help her anxiety and demanded benzodiazepines once again in the office. Database Operator again explained why patient should not be on benzodiazepines due to her substance use including alcohol. Patient also was demanding pain medications for her back and neck. Patient asked ad copy writer to increase her Vistaril as much as he could for anxiety. She states that she had proved sleep last night however asks for an increase in her trazodone. Today patient appeared to be more future oriented and spoke about wanting to see her grandkids again and stated that "I'm never drinking again". When asked about her plan for rehab patient states that she wants to go to the [facility] or to the [facility] and has been looking at rehabs there and will be calling him this afternoon. At this time patient denies any suicidal or homical ideations, intent or plan. Patient denies any auditory, visual hallucinations and denies any paranoia or delusions. Patient denies any side effects from the medications and has been compliant with meds. Mental Status Exam: General Appearance: Patient appears to be stated age is alert, pleasant, and cooperative. Patient has improved hygiene & grooming Behavior: Patient is calmly seated without any agitated behavior. Patient continues to be somewhat tearful. Speech: Patient's speech is fluent and nonpressured. Mood/Affect: Patient reports their mood is "the same", affect is congruent and is less tearful. Suicidality/Homicidality: Patient denies having any suicidal or homicidal ideation intent or plan. Perceptions: Patient denies any auditory or visual hallucinations. Though content/process: There is no evidence of any delusional thought content and thought process is linear and goal-directed. Preoccupied with anxiety and benzodiazepines and pain medications. Memory and concentration: AOX3, grossly intact for the purposes of this session. Judgment and insight: Poor, improving mildly. Assessment Depressive disorder unspecified Anxiety disorder unspecified Alcohol use disorder Plan: -Patient continues to meet criteria for inpatient psychiatric admission for symptom stabilization and safety. Patient has signed the adult voluntary form along with medication consent which is placed in patient's chart. -Medications: Will continue increasing Cymbalta 60 mg daily for mood/anxiety. Increased Vistaril to 50 mg every 8 hours when necessary for anxiety. Increased trazodone to 150 mg daily at bedtime for insomnia and mood. -continue with thiamine, MVM for etoh use -NRT -nicotine patch -SW on board for discharge planning. Continuing to encourage patient to go to rehab upon stabilization. Patient states that now she wants to go to rehab center in [place] and will be calling them today for intake. Patient can be discharged shortly after these arrangements are made.
[2019-01-04 14:48] LABS: Glucose,Whole Blood 109 mg/dL (75-99)
[2019-01-04] MEDS: MAGNESIUM HYDROXIDE 2,400 MG/10 ML CUP PO PRN (16:12)
[2019-01-04] MEDS: traZODone HCL 50 MG TAB PO SCH (23:01)
[2019-01-05] MEDS: THIAMINE 100 MG TAB PO SCH (09:19)
[2019-01-05] MEDS: NICOTINE 21MG/24HR PATCH TRANSDERM SCH (09:19)
[2019-01-05] MEDS: hydrOXYzine PAMOATE 25 MG CAP PO PRN ×2 (09:20→21:44)
[2019-01-05] MEDS: MULTIVITAMINS, THERA 1 EACH TAB PO SCH (09:21)
[2019-01-05] MEDS: DULoxetine HCL 60 MG CAPSULE.DR PO SCH (09:21)
[2019-01-05] MEDS: FOLIC ACID 1 MG TAB PO SCH (09:21)
[2019-01-05] MEDS: CHOLECALCIFEROL 1,000 UNIT TAB PO SCH (09:21)
[2019-01-05] MEDS: SYMBICORT 160-4.5 MCG INHALER INHALATION SCH ×2 (09:21→21:44)
[2019-01-05] MEDS: IBUPROFEN 600 MG TAB PO PRN (11:34)
--- NOTE | 2019-01-05 13:04 | P.PN ---
Progress Note - Text Progress Note Date: 01/05/19 Interval History: Patient was seen in the hallways and was agreeable to speak to junior copywriter in the [facility]. She was noted to be talking with her relatives over the phone and was calm and directable this morning with a brighter affect. Patient claimed that the medical doctor saw her yesterday and recommended to do a CAT scan of her head for her headache and also started her on Imitrex as needed for her headaches. Patient did state that her anxiety has been improved greatly on the new medication dose and is thankful for it. She states that she had better sleep last night and states that she wants to remain on this dose of the trazodone 150 mg. Today patient appeared to be more future oriented about rehab and wanting to stay away from alcohol and stay sober. She states that she has confirmed after speaking with her relatives that she will be going to the rehab in [place] and will speak with the adoption social worker about sending the records and information to them so that she can have an intake soon. She states that her mood has improved. At this time patient denies any suicidal or homical ideations, intent or plan. Patient denies any auditory, visual hallucinations and denies any paranoia or delusions. Patient denies any side effects from the medications and has been compliant with meds. Mental Status Exam: General Appearance: Patient appears to be stated age is alert, pleasant, and cooperative. Patient has improved hygiene & grooming Behavior: Patient is calmly seated without any agitated behavior. Patient continues to be somewhat tearful. Speech: Patient's speech is fluent and nonpressured. Mood/Affect: Patient reports their mood is "better", affect is congruent Suicidality/Homicidality: Patient denies having any suicidal or homicidal ideation intent or plan. Perceptions: Patient denies any auditory or visual hallucinations. Though content/process: There is no evidence of any delusional thought content and thought process is linear and goal-directed. Less preoccupied with medications today. Memory and concentration: AOX3, grossly intact for the purposes of this session. Judgment and insight: Poor, improving mildly. Assessment Depressive disorder unspecified Anxiety disorder unspecified Alcohol use disorder Plan: -Patient continues to meet criteria for inpatient psychiatric admission for symptom stabilization and safety. Patient has signed the adult voluntary form along with medication consent which is placed in patient's chart. -Medications: Will continue with Cymbalta 60 mg daily for mood/anxiety. Continue with Vistaril to 50 mg every 8 hours when necessary for anxiety. Continue with trazodone to 150 mg daily at bedtime for insomnia and mood. -continue with thiamine, MVM for etoh use -NRT -nicotine patch -SW on board for discharge planning. Continuing to encourage patient to go to rehab upon stabilization. Patient now claims that she has started the process for going to rehab in [place] which she prefers. crop farm workers to help patient fax or information and have her appointment
[2019-01-05] MEDS: SUMAtriptan SUCCINATE 50 MG TAB PO PRN (13:47)
--- NOTE | 2019-01-05 13:53 | P.PN ---
Subjective Progress Note Date: 01/05/19 This is a 53-year-old male patient of Dr. Jaime although she has not followed up with Dr. Jaime in some time. She has a past medical history of mild intermittent asthma, COPD, fibromyalgia, generalized anxiety disorder, recurrent depression, tobacco use and dependence, alcohol abuse. The patient gives history of drinking heavily for the past 10-15 years. She usually drinks beer but sometimes will drink half to a full pint of liquor. She states she has been without alcohol for 2 days now and feels very anxious with nausea for the past couple days. She complains of her legs feeling jumpy. She has been on iron which may help. In the past, patient has tried abstinence from alcohol and she only makes it about 3-4 days and then goes back to drinking. She has tried AA and does not like the meetings. She is also complaining of feeling shaky with cold sweats and she is tearful during evaluation. She states that she started drinking heavily when her mother and then her stop father had and last week her dog . She states she is caring for a girlfriend that has cancer and she does not spend time for herself and when she does have time she chooses to drink. Patient came into [facility] emergency center for evaluation. Patient was found to be sinus tachycardia. X-ray of the right elbow showed no acute process. Urine drug screen detected benzodiazepines and marijuana. CBC was unremarkable. Blood sugar 166. Triglycerides 82, cholesterol 194, LDL 75, HDL 103, TSH 4.190. Patient was subsequently admitted to the mental health unit. 01/05: The patient is seen on the mental health unit as a recheck regarding head and neck pain. Patient complains of significant headache as well as neck pain. She states the pain starts at her forehead and goes up to the top of her head and back. She has been on Motrin 600 mg 2-3 times a day and this is not helping. She denies any history of migraine headaches. She does have more pain when she turns her head. She is also complaining of twitching in her eye. Hemoglobin A1c came back at 5.6. Review of Systems Constitutional: Denies fatigue, denies malaise, denies weakness, reports headache Eyes: denies blurred vision, denies pain, denies double vision Ears, nose, mouth and throat: Denies dental pain, Denies nasal congestion, Denies nasal discharge, Denies vertigo Cardiovascular: Denies chest pain, Denies dyspnea on exertion, Denies edema, Denies leg edema, Denies shortness of breath, Denies syncope Respiratory: Denies congestion, Denies cough, Denies cough with sputum, Denies dyspnea, Denies excessive sputum, Denies hemoptysis, Denies home oxygen, Denies wheezing Gastrointestinal: Denies loss of appetite, denies nausea, Denies abdominal pain, Denies diarrhea, Denies vomiting Genitourinary: Denies dysuria, Denies hematuria, Denies urgency, Denies urinary frequency Musculoskeletal: Denies frequent falls, Denies gait dysfunction, Denies muscle weakness, Denies myalgias, reports neck pain increased with movement Integumentary: Denies pruritus, Denies rash Neurological: Denies change in mentation, Denies confusion, Denies gait dysfunction, Denies numbness, Denies seizures, Denies weakness Psychiatric: Reports anxiety, Reports depression, Denies disorientation, Denies hallucinations, Denies suicidal ideation Endocrine: Denies fatigue, Denies weight change Objective - Vital Signs Vital signs: Vital Signs Temp 97.4 F L 01/05/19 07:15 Pulse 89 01/05/19 09:25 Resp 18 01/05/19 09:25 BP 108/53 01/05/19 09:25 Pulse Ox 98 01/03/19 16:30 - Exam Gen: This is a 53-year-old female. Patient is ambulatory, gait is steady, no acute distress. HEENT: Head is atraumatic, normocephalic. Pupils equal, round. Sclerae is anicteric. No nystagmus NECK: Supple. No JVD. No lymphadenopathy. No thyromegaly. LUNGS: Clear to auscultation. No wheezes or rhonchi. No intercostal retractions. HEART: Regular rate and rhythm. No murmur. ABDOMEN: Soft. Bowel sounds are present. No masses. No tenderness. EXTREMITIES: No pedal edema. No calf tenderness. NEUROLOGICAL: Patient is awake, alert and oriented x3. Cranial nerves 2 through 12 are grossly intact. No focal neural deficits. No weakness - Labs CBC & Chem 7: 12/28/18 08:50 12/28/18 08:50 Labs: Abnormal Lab Results - Last 24 Hours (Table) 01/04/19 Range/Units 14:46 POC Glucose (mg/dL) 109 H (75-99) mg/dL Assessment and Plan Plan: 1. Alcohol abuse. Continue thiamine 100 mg daily. Ativan for CIWA protocol, Librium 25 mg 4 times daily. 2. Recurrent depression. Patient admitted to the mental health unit. Continue current plan of care 3. Tobacco use and dependence. Nicotine patch. 4. Elevated blood sugar without history of DM. Check hemoglobin A1c. 5. COPD without exacerbation and mild intermittent asthma. Albuterol inhaler, symbicort inhaler. 6. Headache, neck pain, musculoskeletal, possibly related to underlying fibromyalgia. We will ask for a CAT scan of the brain to rule out acute pathology. Baclofen 5 mg twice daily as needed added if okay with psychiatry, Motrin increased to 800 mg 3 times daily as needed, Pepcid added for GI pro tection. Imitrex added for the next 3 days if needed. Discharge plan: Return home. Patient follow-up with Dr. Jaime after discharge. Impression and plan of care have been directed as dictated by the signing physician. Hina Patrick nurse practitioner acting as scribe for signing physician.
--- NOTE | 2019-01-05 14:28 | CT ---
EXAMINATION TYPE: CT brain wo con DATE OF EXAM: 01/05/2019 COMPARISON: none HISTORY: Headache CT DLP: 945.[address] of the brain was performed. The ventricles, basal cisterns and sulci overlying the cerebral convexities demonstrate a normal appe arance. There is no evidence for intracranial hemorrhage or sulcal effacement. No mass effects are seen. Osseous calvarium is intact. If symptoms persist consider MRI as clinically warranted. IMPRESSION: 1. No acute intracranial process is seen at this time.
[2019-01-05] MEDS: IBUPROFEN 800 MG TAB PO PRN (17:21)
[2019-01-05] MEDS: BACLOFEN 10 MG TAB PO PRN (17:27)
[2019-01-05 17:42] LABS: Appearance,Urine Clear (Clear); Bilirubin,Urine Negative (Negative); Blood,Urine Negative (Negative); Color,Urine Light Yellow; Glucose,Urine (UA) Negative (Negative); Ketones,Urine Negative (Negative); Leukocyte Esterase,Urine Negative (Negative); Nitrite,Urine Negative (Negative); PH, Urine 6.5 (5.0-8.0); Protein,Urine Negative (Negative); Specific Gravity,Urine 1.005 (1.001-1.035); Urobilinogen,Urine <2.0 mg/dL (<2.0)
[2019-01-05] MEDS: traZODone HCL 50 MG TAB PO SCH (21:44)
[2019-01-06] MEDS: THIAMINE 100 MG TAB PO SCH (09:06)
[2019-01-06] MEDS: FOLIC ACID 1 MG TAB PO SCH (09:06)
[2019-01-06] MEDS: FAMOTIDINE 20 MG TAB PO SCH (09:06)
[2019-01-06] MEDS: MULTIVITAMINS, THERA 1 EACH TAB PO SCH (09:06)
[2019-01-06] MEDS: CHOLECALCIFEROL 1,000 UNIT TAB PO SCH (09:07)
[2019-01-06] MEDS: DULoxetine HCL 60 MG CAPSULE.DR PO SCH (09:07)
[2019-01-06] MEDS: hydrOXYzine PAMOATE 25 MG CAP PO PRN ×2 (09:08→22:17)
[2019-01-06] MEDS: BACLOFEN 10 MG TAB PO PRN ×2 (09:08→21:14)
--- NOTE | 2019-01-06 09:10 | P.PN ---
Progress Note - Text Progress Note Date: 01/06/19 Interval History: Patient was seen in the hallways and was agreeable to speak to job specification writer in the o ffice. She was appeared to be calm and directable this morning with a brighter affect and was future oriented. Patient claimed that the she had a CAT scan of her head for her headache which continues to persist. Patient was informed of the results of the CAT scan and questions were asked and answered. Patient did state that her anxiety has been improving mildly as patient is still trying to schedule her dosing of her medications to help her in working on breathing techniques. She states that she slept poorly last night as she had a new roommate and was anxious about that because she did not know her. She states that she is continuing to work on her intake and scheduling of her routine outside of the hospital and also hoping for a confirmation from the rehab in [place]. She states that her family is more supportive of her going and that she needs to cut out friends that are around alcohol and will bring in near her. She claims her mood is mildly improving. At this time patient denies any suicidal or homical ideations, intent or plan. Patient denies any auditory, visual hallucinations and denies any paranoia or delusions. Patient denies any side effects from the medications and has been compliant with meds. Mental Status Exam: General Appearance: Patient appears to be stated age is alert, pleasant, and cooperative. Patient has improved hygiene & grooming Behavior: Patient is calmly seated without any agitated behavior. Patient is less tearful today. Speech: Patient's speech is fluent and nonpressured. Mood/Affect: Patient reports their mood is "good", affect is congruent Suicidality/Homicidality: Patient denies having any suicidal or homicidal ideation intent or plan. Perceptions: Patient denies any auditory or visual hallucinations. Though content/process: There is no evidence of any delusional thought content and thought process is linear and goal-directed. Less preoccupied with medications today. Memory and concentration: AOX3, grossly intact for the purposes of this session. Judgment and insight: Fair, improving mildly. Assessment Depressive disorder unspecified Anxiety disorder unspecified Alcohol use disorder Plan: -Patient continues to meet criteria for inpatient psychiatric admission for symptom stabilization and safety. Patient has signed the adult voluntary form along with medication consent which is placed in patient's chart. -Medications: Will continue with Cymbalta 60 mg daily for mood/anxiety. Continue with Vistaril to 50 mg every 8 hours when necessary for anxiety. Continue with trazodone to 150 mg daily at bedtime for insomnia and mood. -continue with thiamine, MVM for etoh use -At this time patient was offered to be started on medications for alcohol cravings however patient claimed that she would like to wait in the future to start these possibly during rehab. -NRT -nicotine patch -SW on board for discharge planning. Continuing to encourage patient to go to rehab upon stabilization. Patient is working on obtaining an intake and arrangements to get to [place] for her rehab. chute worker to help patient fax in information and have her appointment
[2019-01-06] MEDS: NICOTINE 14MG/24HR PATCH TRANSDERM SCH ×2 (09:12→09:13)
[2019-01-06] MEDS: SYMBICORT 160-4.5 MCG INHALER INHALATION SCH ×2 (09:50→22:14)
[2019-01-06] MEDS: SUMAtriptan SUCCINATE 50 MG TAB PO PRN (14:59)
[2019-01-06] MEDS: MAGNESIUM HYDROXIDE 2,400 MG/10 ML CUP PO PRN (16:26)
[2019-01-06] MEDS: traZODone HCL 50 MG TAB PO SCH (22:15)
[2019-01-07] MEDS: IBUPROFEN 800 MG TAB PO PRN (07:24)
[2019-01-07] MEDS: SYMBICORT 160-4.5 MCG INHALER INHALATION SCH ×2 (08:42→21:46)
[2019-01-07] MEDS: FOLIC ACID 1 MG TAB PO SCH (08:43)
[2019-01-07] MEDS: THIAMINE 100 MG TAB PO SCH (08:43)
[2019-01-07] MEDS: MULTIVITAMINS, THERA 1 EACH TAB PO SCH (08:43)
[2019-01-07] MEDS: FAMOTIDINE 20 MG TAB PO SCH (08:43)
[2019-01-07] MEDS: DULoxetine HCL 60 MG CAPSULE.DR PO SCH (08:43)
[2019-01-07] MEDS: CHOLECALCIFEROL 1,000 UNIT TAB PO SCH (08:43)
[2019-01-07] MEDS: NICOTINE 14MG/24HR PATCH TRANSDERM SCH (08:43)
[2019-01-07] MEDS: hydrOXYzine PAMOATE 25 MG CAP PO PRN ×2 (08:45→22:30)
[2019-01-07] MEDS: BACLOFEN 10 MG TAB PO PRN ×2 (09:28→22:31)
--- NOTE | 2019-01-07 10:35 | P.PN ---
Progress Note - Text Interval history: The patient is found in her room she follows me to an interview room. She states that she is doing better. She plans on being discharged Wednesday she states later in the week she will fly down to [place] and will participate in inpatient chemical dependency treatment there. It appears she has had a family meeting already. She has no questions or concerns regarding her psychotropic medication. The patient states she had some difficulty sleeping last night and is resting in bed still this morning. Staff reported she slept 5 hours last evening. At length she describes her plans to go to [place] participate in rehab and describes several reasons why she needs to discontinue use of alcohol. Mental status exam: The patient is alert she is dressed in her own clothing and is wearing a bathrobe over top. Eye contact is appropriate speech is fluent spontaneous nonpressured. She demonstrates an appropriate range of affect including appropriate smiling and use of humor. She reports having no suicidal or homicidal ideation intent or plan. She is reporting no auditory or visual hallucinations or any specific delusions. There is no observed evidence of psychosis. She demonstrates no tangential thinking loose associations or flight of ideas. She does not appear hypomanic or manic. Insight and judgment improving. She is oriented to person place and date. Length: The patient will continue on her current psychotropic medication. She is encouraged to stay out of bed and participate in the milieu throughout the day. Vital signs reviewed. It appears that she is clinically stabilizing and will be appropriate for discharge on Wednesday.
[2019-01-07] MEDS: MAGNESIUM HYDROXIDE 2,400 MG/10 ML CUP PO PRN (14:44)
[2019-01-07] MEDS: traZODone HCL 50 MG TAB PO SCH (22:30)
[2019-01-08] MEDS: SYMBICORT 160-4.5 MCG INHALER INHALATION SCH ×2 (08:39→22:04)
[2019-01-08] MEDS: FOLIC ACID 1 MG TAB PO SCH (08:39)
[2019-01-08] MEDS: DULoxetine HCL 60 MG CAPSULE.DR PO SCH (08:39)
[2019-01-08] MEDS: FAMOTIDINE 20 MG TAB PO SCH (08:39)
[2019-01-08] MEDS: THIAMINE 100 MG TAB PO SCH (08:39)
[2019-01-08] MEDS: MULTIVITAMINS, THERA 1 EACH TAB PO SCH (08:39)
[2019-01-08] MEDS: CHOLECALCIFEROL 1,000 UNIT TAB PO SCH (08:39)
[2019-01-08] MEDS: IBUPROFEN 800 MG TAB PO PRN (08:40)
[2019-01-08] MEDS: hydrOXYzine PAMOATE 25 MG CAP PO PRN ×2 (08:43→16:33)
[2019-01-08] MEDS: NICOTINE 14MG/24HR PATCH TRANSDERM SCH (09:29)
--- NOTE | 2019-01-08 09:34 | P.PN ---
Progress Note - Text Interval history: The patient is found in the hallway she follows me to an interview room. She states her mood is good. She is sleeping well appetite is stable. She has no questions or concerns regarding her medication. She is looking forward to being discharged tomorrow and going down to [place] for chemical dependency treatment. She has been attending groups. Mental status exam: The patient is alert she is pleasant cooperative she is dressed in her own clothing hygiene grooming adequate. Eye contact is appropriate speech is fluent spontaneous. She demonstrates no tangential thinking loose associations or flight of ideas. She reports no suicidal or homicidal ideation intent or plan. She endorses no symptoms of psychosis there is no objective evidence of psychosis. Insight and judgment improving. She is fully oriented to person place and date. She spontaneously describes future oriented thinking. Plan: The patient will continue on her current psychotropic medications. She is encouraged to continue participating in the milieu. We will monitor her for safety. She appears to be clinically stabilizing and would be appropriate for discharge as soon as tomorrow.
[2019-01-08] MEDS: BACLOFEN 10 MG TAB PO PRN ×2 (11:02→22:05)
[2019-01-08] MEDS: SUMAtriptan SUCCINATE 50 MG TAB PO PRN (11:25)
[2019-01-08 13:26] VITALS: BMI 29.5
[2019-01-08] MEDS: traZODone HCL 50 MG TAB PO SCH (22:04)
[2019-01-09 06:49] VITALS: BP 105/59; PULSE 79; RESP 16; TEMP 98
[2019-01-09] MEDS: FOLIC ACID 1 MG TAB PO SCH (08:59)
[2019-01-09] MEDS: DULoxetine HCL 60 MG CAPSULE.DR PO SCH (08:59)
[2019-01-09] MEDS: CHOLECALCIFEROL 1,000 UNIT TAB PO SCH (08:59)
[2019-01-09] MEDS: MULTIVITAMINS, THERA 1 EACH TAB PO SCH (08:59)
[2019-01-09] MEDS: FAMOTIDINE 20 MG TAB PO SCH (08:59)
[2019-01-09] MEDS: THIAMINE 100 MG TAB PO SCH (08:59)
[2019-01-09] MEDS: BACLOFEN 10 MG TAB PO PRN (09:01)
[2019-01-09] MEDS: hydrOXYzine PAMOATE 25 MG CAP PO PRN (09:02)
[2019-01-09] MEDS: SYMBICORT 160-4.5 MCG INHALER INHALATION SCH (09:04)
[2019-01-09] MEDS: NICOTINE 14MG/24HR PATCH TRANSDERM SCH (09:05)
--- NOTE | 2019-01-09 09:45 | P.DS ---
Providers Date of admission: 12/27/18 16:41 Expected date of discharge: 01/09/19 Attending physician: Luisito Baker MD Consults: 12/27/18 17:29 Consult Physician Routine Consulting Provider: Ana Maria Jaime Consult Reason/Comments: H&P and medical Do you want consulting provider notified?: Yes 01/04/19 16:16 Consult Physician Routine Consulting Provider: Ana Maria Jaime Consult Reason/Comments: Headache and neck pain. Do you want consulting provider notified?: Yes Primary care physician: Ana Maria Makio - Discharge Diagnosis(es) (1) Depression Current Visit: Yes Status: Acute Priority: High (2) Alcohol use disorder Current Visit: Yes Status: Acute Priority: High Hospital Course: Brief summary of admission note: This patient is a 53-year-old female who was admitted to the mental health unit with suicidal ideation. Patient is known to have symptoms of depression along with alcohol use disorder. Alcohol use had been increasing to the point of drinking 3-4, 25 ounce beers a day along with a pint of vodka. She was feeling helpless and overwhelmed. For full details please refer to the psychiatric evaluation dated 12/28/2018. Summary of hospital course: The patient was admitted to the mental health unit voluntarily. She was placed on CIWA protocol and was given Librium to control alcohol withdrawal symptoms. She was initially started on Zoloft. She was cared for initially by Dr. Baker please refer to his specific progress notes for detail. I assumed care of the patient this past Wednesday. During the course of the hospitalization her antidepressant was changed to Cymbalta and she was placed on trazodone. During our discussions she indicated she would like to be prescribed naltrexone to reduce her urges for using alcohol. The patient has been attending groups. Initially in the hospitalization and appears that she was irritable and agitated but this improved during the course of the admission. Social work was able to conduct a support meeting involving the patient's sister which was productive. They decided that the patient would attend inpatient chemical dependency treatment down in [place] and that is arranged for the end of the week. The patient will be discharged today she will reside with her sister and they will fly down to [place] Wednesday. Mental status exam: The patient is alert she is dressed in her own clothing hygiene grooming adequate. Eye contact is appropriate. Speech is fluent spontaneous nonpressured. She indicates her mood is good she denies having any hopelessness thinking she reports no suicidal ideation intent or plan. She is reporting no homicidal ideation intent or plan. She reports no auditory or visual hallucinations or any specific delusions there is no observed evidence of psychosis. She demonstrates no tangential thinking loose associations or flight of ideas. There is no evidence of hypomania or holden. She demonstrates no verbal or physical aggressiveness. Insight and judgment grossly intact. She is fully oriented person place and date. She spontaneously describes several examples of future oriented thinking. Impressions 1. Depression unspecified, rule out major depressive disorder, alcohol use disorder, rule out cannabis use disorder. Plan: The patient's will be discharged mental health unit today. She will reside with her sister until Wednesday when she leaves for [place] to attend inpatient chemical dependency treatment. She will continue on Cymbalta 60 mg daily, trazodone 150 mg at bedtime, we will start naltrexone 50 mg daily. Continue Vistaril 50 mg up to 8 hours as needed. At this time there is no imminent safety risk she is appropriate for transition back to outpatient care with plans to attend inpatient chemical dependency treatment. She is instructed to abstain from any use of alcohol and marijuana or illicit drugs as he substances can provoke mood symptoms and elevate her safety risk. She is instructed to return to the hospital with any acute safety concerns. Patient Condition at Discharge: Stable Plan - Discharge Summary Discharge Rx Participant: No New Discharge Prescriptions: New DULoxetine HCL [Cymbalta] 60 mg PO DAILY #30 capsule. Nicotine 14Mg/24Hr Patch [Habitrol] 1 patch TRANSDERM DAILY #14 patch Multivitamins, Thera [Multivitamin (formulary)] 1 each PO DAILY tab Famotidine [Pepcid] 20 mg PO DAILY tab Naltrexone HCl [Revia] 50 mg PO DAILY #30 tablet Budesonide-Formot 160-4.5 Mcg [Symbicort 160-4.5 Mcg Inhaler] 2 puff INHALATION RT-BID puff traZODone HCL 150 mg PO HS #30 tablet Albuterol Inhaler [Ventolin Hfa Inhaler] 2 puff INHALATION RT-QID PRN puff PRN Reason: Shortness Of Breath Or Wheezing hydrOXYzine PAMOATE [Vistaril] 50 mg PO TID PRN #45 capsule PRN Reason: Anxiety Cholecalciferol [Vitamin D3 (25 Mcg = 1000 Iu)] 1,000 unit PO DAILY tab Continue Ibuprofen [Motrin] 800 mg PO DAILY PRN #30 tab PRN Reason: Pain Discontinued diphenhydrAMINE [Benadryl] 25 mg PO HS PRN PRN Reason: Insomnia ALPRAZolam [Xanax] 0.5 mg PO ONCE Discharge Medication List Albuterol Inhaler [Ventolin Hfa Inhaler] 2 puff INHALATION RT-QID PRN puff 01/09/19 [Rx] Budesonide-Formot 160-4.5 Mcg [Symbicort 160-4.5 Mcg Inhaler] 2 puff INHALATION RT-BID puff 01/09/19 [Rx] Cholecalciferol [Vitamin D3 (25 Mcg = 1000 Iu)] 1,000 unit PO DAILY tab 01/09/19 [Rx] DULoxetine HCL [Cymbalta] 60 mg PO DAILY #30 capsule. 01/09/19 [Rx] Famotidine [Pepcid] 20 mg PO DAILY tab 01/09/19 [Rx] Ibuprofen [Motrin] 800 mg PO DAILY PRN #30 tab 01/09/19 [Rx] Multivitamins, Thera [Multivitamin (formulary)] 1 each PO DAILY tab 01/09/19 [Rx] Naltrexone HCl [Revia] 50 mg PO DAILY #30 tablet 01/09/19 [Rx] Nicotine 14Mg/24Hr Patch [Habitrol] 1 patch TRANSDERM DAILY #14 patch 01/09/19 [Rx] hydrOXYzine PAMOATE [Vistaril] 50 mg PO TID PRN #45 capsule 01/09/19 [Rx] traZODone HCL 150 mg PO HS #30 tablet 01/09/19 [Rx] Follow up Appointment(s)/Referral(s): Ana Maria Jaime MD [Primary Care Provider] - 1-2 days
== END 2019-01-09 14:00 | disposition home or self-care (01) | DRG 885 ==
LOC: EC 13:29 → 3MHU 16:41
PROVIDERS: ADMIT Psychiatry & Neurology Psychiatry; ATTEND Psychiatry & Neurology Psychiatry
DX: F33.9 Major depressive disorder, recurrent, unspecified (principal); F10.239 Alcohol dependence with withdrawal, unspecified; R45.851 Suicidal ideations; J44.9 Chronic obstructive pulmonary disease, unspecified; M79.7 Fibromyalgia; J45.20 Mild intermittent asthma, uncomplicated; F41.1 Generalized anxiety disorder; M54.2 Cervicalgia; M54.9 Dorsalgia, unspecified; R00.0 Tachycardia, unspecified; R51 Headache; G47.00 Insomnia, unspecified; F12.90 Cannabis use, unspecified, uncomplicated; F17.210 Nicotine dependence, cigarettes, uncomplicated; Z71.6 Tobacco abuse counseling; Z79.899 Other long term (current) drug therapy; Z86.14 Personal history of Methicillin resistant Staphylococcus aureus infection; Z90.710 Acquired absence of both cervix and uterus; Z98.891 History of uterine scar from previous surgery; Z98.51 Tubal ligation status; Z88.2 Allergy status to sulfonamides; Z88.0 Allergy status to penicillin; Z88.1 Allergy status to other antibiotic agents; Z91.030 Bee allergy status; Z80.8 Family history of malignant neoplasm of other organs or systems; Z82.49 Family history of ischemic heart disease and other diseases of the circulatory system; Z82.5 Family history of asthma and other chronic lower respiratory diseases; Z81.8 Family history of other mental and behavioral disorders
CPT/HCPCS: 70450; 80053; 80061; 80306; 81003; 82075; 83036; 84443; 85025; 99285

== ENCOUNTER 2022-12-26 23:38 | Emergency (ER) | payer OTHER ==
[2022-12-26 23:47] VITALS: TEMP 97.7
--- NOTE | 2022-12-27 00:35 | ED ---
Psych HPI - General Source: patient, RN notes reviewed, old records reviewed Mode of arrival: ambulatory - History of Present Illness MD Complaint: suicidal ideation, feels depressed, other (Call intoxication) -: unknown Associated Psychiatric Symptoms: depression, suicidal ideation Improves With: none Context: recent alcohol abuse Associated Symptoms: denies other symptoms Treatments Prior to Arrival: placed on mental health hold <Pranav Puri - Last Filed: 12/27/22 02:14> <Christian Reid - Last Filed: 12/27/22 09:25> - General Chief Complaint: Psychiatric Symptoms Stated Complaint: Petition Time Seen by Provider: 12/26/22 23:48 - History of Present Illness Initial Comments: This is a 57-year-old female DF for evaluation today. Patient presents today for evaluation regards to alcohol intoxication and alleged making suicidal thoughts and thoughts to her sister family members. Patient is brought in by EMS, PD for psychiatric evaluation. (Pranav Puri) - Related Data Previous Rx's Medication Instructions Recorded Albuterol Inhaler [Ventolin Hfa 2 puff INHALATION RT-QID PRN puff 01/09/19 Inhaler] Budesonide-Formot 160-4.5 Mcg 2 puff INHALATION RT-BID puff 01/09/19 [Symbicort 160-4.5 Mcg Inhaler] Cholecalciferol [Vitamin D3 (25 1,000 unit PO DAILY tab 01/09/19 Mcg = 1000 Iu)] DULoxetine HCL [Cymbalta] 60 mg PO DAILY #30 capsule. 01/09/19 Famotidine [Pepcid] 20 mg PO DAILY tab 01/09/19 Ibuprofen [Motrin] 800 mg PO DAILY PRN #30 tab 01/09/19 Multivitamins, Thera [Multivitamin 1 each PO DAILY tab 01/09/19 (formulary)] Naltrexone HCl [Revia] 50 mg PO DAILY #30 tablet 01/09/19 Nicotine 14Mg/24Hr Patch [Habitrol] 1 patch TRANSDERM DAILY #14 patch 01/09/19 hydrOXYzine pamoate [Vistaril] 50 mg PO TID PRN #45 capsule 01/09/19 traZODone HCL 150 mg PO HS #30 tablet 01/09/19 Allergies Allergy/AdvReac Type Severity Reaction Status Date / Time erythromycin base Allergy Unknown Verified 12/26/22 23:43 Penicillins Allergy Rash/Hives Verified 12/26/22 23:43 Sulfa (Sulfonamide Allergy Unknown Verified 12/26/22 23:43 Antibiotics) venom-honey bee Allergy Anaphylaxis Verified 12/26/22 23:43 [bee venom (honey bee)] Review of Systems ROS Other: All systems not noted in ROS Statement are negative. <Pranav Puri - Last Filed: 12/27/22 02:14> ROS Other: All systems not noted in ROS Statement are negative. <Christian Reid - Last Filed: 12/27/22 09:25> ROS Statement: Those systems with pertinent positive or pertinent negative responses have been documented in the HPI. Past Medical History Past Medical History: Asthma, COPD, Fibromyalgia Additional Past Medical History / Comment(s): anxiety History of Any Multi-Drug Resistant Organisms: MRSA Date of last positivie culture/infection: 1999 MDRO Source:: buttocks Past Surgical History: Section, Hysterectomy, Tubal Ligation Past Anesthesia/Blood Transfusion Reactions: No Reported Reaction Past Psychological History: Anxiety, Bipolar, Depression Smoking Status: Current every day smoker Past Alcohol Use History: Daily Past Drug Use History: Marijuana - Past Family History Father Family Medical History: Cancer Additional Family Medical History / Comment(s): Father from throat cancer. He also suffered from depression and attempted suicide. Mother Family Medical History: Congestive Heart Failure (CHF), COPD Additional Family Medical History / Comment(s): Mother is from heart failure with probable history of bipolar disorder. Sister(s) Family Medical History: COPD Additional Family Medical History / Comment(s): Patient has 2 sisters one with COPD and one with depression. Patient does not have any brothers. Daughter(s) Family Medical History: Asthma Son(s) Family Medical History: No Reported History <Pranav Puri - Last Filed: 12/27/22 02:14> General Exam Limitations: no limitations General appearance: alert, in no apparent distress, appears intoxicated Head exam: Present: atraumatic, normocephalic, normal inspection Eye exam: Present: normal appearance, PERRL, EOMI. Absent: scleral icterus, conjunctival injection, periorbital swelling ENT exam: Present: normal exam, mucous membranes moist Neck exam: Present: normal inspection. Absent: tenderness, meningismus, lymphadenopathy Respiratory exam: Present: normal lung sounds bilaterally. Absent: respiratory distress, wheezes, rales, rhonchi, stridor Cardiovascular Exam: Present: regular rate, normal rhythm, normal heart sounds. Absent: systolic murmur, diastolic murmur, rubs, gallop, clicks GI/Abdominal exam: Present: soft, normal bowel sounds. Absent: distended, tenderness, guarding, rebound, rigid Extremities exam: Present: normal inspection, full ROM, normal capillary refill. Absent: tenderness, pedal edema, joint swelling, calf tenderness Back exam: Present: normal inspection Neurological exam: Present: alert, oriented X3, CN II-XII intact Psychiatric exam: Present: normal affect, normal mood Skin exam: Present: warm, dry, intact, normal color. Absent: rash <Pranav Puri - Last Filed: 12/27/22 02:14> Course <Pranav Puri - Last Filed: 12/27/22 02:14> Vital Signs 12/26/22 12/27/22 23:44 05:00 Temperature 97.7 F Pulse Rate 88 Respiratory 18 17 Rate Blood Pressure 117/65 O2 Sat by Pulse 98 Oximetry - Reevaluation(s) Reevaluation #1: 12/27/22 02:15 Medical record is reviewed (Pranav Puri) Disposition <Pranav Puri - Last Filed: 12/27/22 02:14> Is patient prescribed a controlled substance at d/c from ED?: No <Christian Reid - Last Filed: 12/27/22 09:25> Clinical Impression: Psychiatric complaint Disposition: HOME SELF-CARE Condition: Good Instructions (If sedation given, give patient instructions): Abuse of Alcohol (ED) Referrals: Constantino Zimmerman MD [Primary Care Provider] - 1-2 days
[2022-12-27] MEDS ORDERED: HYDROcodone/APAP 5-325MG 1 EACH TAB PO STA (01:01)
[2022-12-27 09:48] VITALS: BP 122/75; PULSE 82; RESP 18
== END 2022-12-27 09:48 | disposition home or self-care (01) ==
LOC: EC 23:38
DX: F99 Mental disorder, not otherwise specified (principal); J44.9 Chronic obstructive pulmonary disease, unspecified; F41.9 Anxiety disorder, unspecified; F31.9 Bipolar disorder, unspecified; F17.200 Nicotine dependence, unspecified, uncomplicated; F12.90 Cannabis use, unspecified, uncomplicated; Z88.2 Allergy status to sulfonamides; Z88.0 Allergy status to penicillin; Z91.030 Bee allergy status; Z79.51 Long term (current) use of inhaled steroids; Z79.899 Other long term (current) drug therapy
CPT/HCPCS: 82075; 99285

== ENCOUNTER 2022-12-29 14:43 | Observation (INO) | payer MEDICARE, OTHER ==
[2022-12-29] MEDS ORDERED: SODIUM CHLORIDE 0.9% 1,000 ML IV ONE (15:25)
[2022-12-29] MEDS ORDERED: THIAMINE 100 MG/ML 2 ML VIAL IM STA (15:26)
[2022-12-29] MEDS ORDERED: LORazepam 2 MG/ML INJ IV PRN ×2 (15:26)
[2022-12-29 15:58] LABS: Basophils % (A) 0 %; Eosinophils # (A) 0.1 k/uL (0-0.7); Eosinophils % (A) 1 %; HCT 40.7 % (34.0-46.0); HGB 13.7 gm/dL (11.4-16.0); Lymphocytes # (A) 0.8 k/uL (1.0-4.8); Lymphocytes % (A) 14 %; MCH 32.8 pg (25.0-35.0); MCHC 33.8 g/dL (31.0-37.0); MCV 97.1 fL (80.0-100.0); Monocytes # (A) 0.5 k/uL (0-1.0); Monocytes % (A) 8 %; Neutrophils # (A) 4.4 k/uL (1.3-7.7); Neutrophils % (A) 75 %; Platelet Count 225 k/uL (150-450); RBC 4.19 m/uL (3.80-5.40); RDW 13.2 % (11.5-15.5); WBC 5.9 k/uL (3.8-10.6)
[2022-12-29 16:34] LABS: ALT 100 U/L (4-34); AST 181 U/L (14-36); African American GFR (CKD) >90 (>60 ml/min/1.73 sqM); Albumin 4.4 g/dL (3.5-5.0); Alcohol <10 mg/dL; Alkaline Phosphatase 73 U/L (38-126); Anion Gap 12 mmol/L; Blood Urea Nitrogen 21 mg/dL (7-17); Calcium 9.5 mg/dL (8.4-10.2); Carbon Dioxide 22 mmol/L (22-30); Chloride 97 mmol/L (98-107); Glucose 105 mg/dL (74-99); Lipase 53 U/L (23-300); Magnesium 1.8 mg/dL (1.6-2.3); Non-African American GFR(CKD) 79 (>60 ml/min/1.73 sqM); Potassium 5.3 mmol/L (3.5-5.1); Sodium 131 mmol/L (137-145); Total Bilirubin 0.6 mg/dL (0.2-1.3); Total Protein 7.5 g/dL (6.3-8.2)
[2022-12-29] MEDS: LORazepam 2 MG/ML INJ IV PRN (17:46)
[2022-12-29] MEDS ORDERED: NALOXONE 0.4 MG/ML 1 ML VIAL IV PRN (17:49)
--- NOTE | 2022-12-29 17:54 | ED ---
General Adult HPI - General Chief complaint: Alcohol Stated complaint: ETOH Time Seen by Provider: 12/29/22 15:00 Source: patient Mode of arrival: ambulatory Limitations: no limitations - History of Present Illness Initial comments: This is a 57-year-old female with a past medical history including hypertension and diabetes presents emergency department for alcohol detox. The patient stated that she has been drinking approximately 1 pint of vodka per day over the last 4 weeks and stated that she had her last drink yesterday morning. The patient stated that she wanted to detox from alcohol as it is "burning her life." The patient on arrival stated that she had nausea and was having tremors at rest. The patient also stated that she had "sensations of feeling like crap." The patient denied any other acute pain or complaint at this time. - Related Data Previous Rx's Medication Instructions Recorded Albuterol Inhaler [Ventolin Hfa 2 puff INHALATION RT-QID PRN puff 01/09/19 Inhaler] Budesonide-Formot 160-4.5 Mcg 2 puff INHALATION RT-BID puff 01/09/19 [Symbicort 160-4.5 Mcg Inhaler] Cholecalciferol [Vitamin D3 (25 1,000 unit PO DAILY tab 01/09/19 Mcg = 1000 Iu)] DULoxetine HCL [Cymbalta] 60 mg PO DAILY #30 capsule. 01/09/19 Famotidine [Pepcid] 20 mg PO DAILY tab 01/09/19 Ibuprofen [Motrin] 800 mg PO DAILY PRN #30 tab 01/09/19 Multivitamins, Thera [Multivitamin 1 each PO DAILY tab 01/09/19 (formulary)] Naltrexone HCl [Revia] 50 mg PO DAILY #30 tablet 01/09/19 Nicotine 14Mg/24Hr Patch [Habitrol] 1 patch TRANSDERM DAILY #14 patch 01/09/19 hydrOXYzine pamoate [Vistaril] 50 mg PO TID PRN #45 capsule 01/09/19 traZODone HCL 150 mg PO HS #30 tablet 01/09/19 Allergies Allergy/AdvReac Type Severity Reaction Status Date / Time erythromycin base Allergy Unknown Verified 12/29/22 14:49 Penicillins Allergy Rash/Hives Verified 12/29/22 14:49 Sulfa (Sulfonamide Allergy Unknown Verified 12/29/22 14:49 Antibiotics) venom-honey bee Allergy Anaphylaxis Verified 12/29/22 14:49 [bee venom (honey bee)] Review of Systems ROS Statement: Those systems with pertinent positive or pertinent negative responses have been documented in the HPI. ROS Other: All systems not noted in ROS Statement are negative. Past Medical History Past Medical History: Asthma, COPD, Fibromyalgia Additional Past Medical History / Comment(s): anxiety History of Any Multi-Drug Resistant Organisms: MRSA Date of last positivie culture/infection: 1999 MDRO Source:: buttocks Past Surgical History: Section, Hysterectomy, Tubal Ligation Past Anesthesia/Blood Transfusion Reactions: No Reported Reaction Past Psychological History: Anxiety, Bipolar, Depression Smoking Status: Current every day smoker Past Alcohol Use History: Daily Past Drug Use History: Marijuana - Past Family History Father Family Medical History: Cancer Additional Family Medical History / Comment(s): Father from throat cancer. He also suffered from depression and attempted suicide. Mother Family Medical History: Congestive Heart Failure (CHF), COPD Additional Family Medical History / Comment(s): Mother is from heart failure with probable history of bipolar disorder. Sister(s) Family Medical History: COPD Additional Family Medical History / Comment(s): Patient has 2 sisters one with COPD and one with depression. Patient does not have any brothers. Daughter(s) Family Medical History: Asthma Son(s) Family Medical History: No Reported History General Exam Limitations: no limitations General appearance: alert, in no apparent distress, anxious, other (Tremulous) Head exam: Present: atraumatic, normocephalic, normal inspection Eye exam: Present: normal appearance, PERRL Pupils: Present: normal accommodation ENT exam: Present: normal exam, normal oropharynx, mucous membranes moist Neck exam: Present: normal inspection, full ROM Respiratory exam: Present: normal lung sounds bilaterally Cardiovascular Exam: Present: normal rhythm, tachycardia GI/Abdominal exam: Present: soft, normal bowel sounds Extremities exam: Present: normal inspection, full ROM Back exam: Present: normal inspection, full ROM Neurological exam: Present: alert, oriented X3, CN II-XII intact Psychiatric exam: Present: normal affect, normal mood Skin exam: Present: warm, dry Course Vital Signs 12/29/22 12/29/22 12/29/22 14:46 15:39 16:30 Temperature 98.7 F Pulse Rate 133 H 111 H 110 H Respiratory 20 18 20 Rate Blood Pressure 143/80 124/49 O2 Sat by Pulse 95 95 93 L Oximetry EKG Findings - EKG Comments: EKG Findings:: An EKG was obtained and was interpreted by myself showing a rate of 109, AK interval 138, QR evangelical of 71 and QTC of 374. This EKG showed a normal sinus rhythm with no ST segment elevation or depression noted. Medical Decision Making - Medical Decision Making Was pt. sent in by a medical professional or institution ([facility], HOUSEHOLD PERSONAL ASSISTANT, urgent care, hospital, or usp...) When possible be specific @ -No Did you speak to anyone other than the patient for history (EMS, parent, family, police, friend...)? What history was obtained from this source @ -No Did you review nursing and triage notes (agree or disagree)? Why? @ -I reviewed and agree with nursing and triage notes Were old charts reviewed (outside hosp., previous admission, EMS record, old EKG, old radiological studies, urgent care reports/EKG's, usp records)? Report findings @ -No old charts were reviewed Differential Diagnosis (chest pain, altered mental status, abdominal pain women, abdominal pain men, vaginal bleeding, weakness, fever, dyspnea, syncope, headache, dizziness, GI bleed, back pain, seizure, CVA, palpatations, mental health)? @ -Alcohol withdrawal, alcohol intoxication, dehydration, anxiety, depression EKG interpreted by me (3pts min.). @ -As above X-rays interpreted by me (1pt min.). @ -None done CT interpreted by me (1pt min.). @ -None done U/S interpreted by me (1pt. min.). @ -None done What testing was considered but not performed or refused? (CT, X-rays, U/S, labs)? Why? @ -None What meds were considered but not given or refused? Why? @ -None Did you discuss the management of the patient with other professionals (professionals i.e. [facility], HOUSEHOLD PERSONAL ASSISTANT, lab, RT, psych nurse, social services designee, lawyer real estate, teacher, forest fire management officer, case management manager)? Give summary @ -Yes, Jill Salvador was contacted regarding patient admission and she did agree Was smoking cessation discussed for >3mins.? @ -No Was critical care preformed (if so, how long)? @ -No Were there social determinants of health that impacted care today? How? (Homelessness, low income, unemployed, alcoholism, drug addiction, transportation, low edu. Level, literacy, decrease access to med. care, [facility], rehab)? @ -Alcoholism Was there de-escalation of care discussed even if they declined (Discuss DNR or withdrawal of care, Hospice)? DNR status @ -No What co-morbidities impacted this encounter? (DM, HTN, Smoking, COPD, CAD, Cancer, CVA, ARF, Chemo, Hep., AIDS, mental health diagnosis, sleep apnea, morbid obesity)? @ -None Was patient admitted / discharged? Hospital course, mention meds given and route, prescriptions, significant lab abnormalities, going to OR and other per tinent info. @ -The patient was seen and evaluated in the emergency department. On physical exam, the patient was resting in bed in mild distress secondary to tremors and nausea. Vital signs show tachycardia. Due to the nature the patient's complaints, a CIWA evaluation was obtained and initially the patient did score 6 but then increased while in the emergency department to a score of 9. The patient was placed on Ativan protocol and due to the patient's a withdrawal, valorie l be admitted for further workup and evaluation. The patient stated multiple times in the emergency department that she wanted to quit alcohol as it was ruining her life and she was ready to stop drinking. The patient was agreeable to this and was tearful and appreciative. The patient was admitted in stable condition. Undiagnosed new problem with uncertain prognosis? @ -No Drug Therapy requiring intensive monitoring for toxicity (Heparin, Nitro, Insulin, Cardizem)? @ -No Were any procedures done? @ -No Diagnosis/symptom? @ -Alcohol withdrawal Acute, or Chronic, or Acute on Chronic? @ -Acute Uncomplicated (without systemic symptoms) or Complicated (systemic symptoms)? @ -Complicated Side effects of treatment? @ -No Exacerbation, Progression, or Severe Exacerbation? @ -No Poses a threat to life or bodily function? How? (Chest pain, USA, MS, pneumonia, PE, COPD, DKA, ARF, appy, cholecystitis, CVA, Diverticulitis, Homicidal, Suicidal, threat to staff... and all critical care pts) @ -Yes, continued withdrawal can lead to delirium tremens, seizure and possible . - Lab Data Result diagrams: 12/29/22 15:50 12/29/22 15:50 Lab Results 12/29/22 12/29/22 Range/Units 15:50 15:50 WBC 5.9 (3.8-10.6) k/uL RBC 4.19 (3.80-5.40) m/uL Hgb 13.7 (11.4-16.0) gm/dL Hct 40.7 (34.0-46.0) % MCV 97.1 (80.0-100.0) fL MCH 32.8 (25.0-35.0) pg MCHC 33.8 (31.0-37.0) g/dL RDW 13.2 (11.5-15.5) % Plt Count 225 (150-450) k/uL MPV 8.0 Neutrophils % 75 % Lymphocytes % 14 % Monocytes % 8 % Eosinophils % 1 % Basophils % 0 % Neutrophils # 4.4 (1.3-7.7) k/uL Lymphocytes # 0.8 L (1.0-4.8) k/uL Monocytes # 0.5 (0-1.0) k/uL Eosinophils # 0.1 (0-0.7) k/uL Basophils # 0.0 (0-0.2) k/uL Sodium 131 L (137-145) mmol/L Potassium 5.3 H (3.5-5.1) mmol/L Chloride 97 L (98-107) mmol/L Carbon Dioxide 22 (22-30) mmol/L Anion Gap 12 mmol/L BUN 21 H (7-17) mg/dL Creatinine 0.83 (0.52-1.04) mg/dL Est GFR (CKD-EPI)AfAm >90 (>60 ml/min/1.73 sqM) Est GFR (CKD-EPI)NonAf 79 (>60 ml/min/1.73 sqM) Glucose 105 H (74-99) mg/dL Calcium 9.5 (8.4-10.2) mg/dL Magnesium 1.8 (1.6-2.3) mg/dL Total Bilirubin 0.6 (0.2-1.3) mg/dL AST 181 H (14-36) U/L ALT 100 H (4-34) U/L Alkaline Phosphatase 73 (38-126) U/L Total Protein 7.5 (6.3-8.2) g/dL Albumin 4.4 (3.5-5.0) g/dL Lipase 53 (23-300) U/L Serum Alcohol <10 mg/dL Disposition Clinical Impression: Alcohol withdrawal syndrome Disposition: ADMITTED IP TO THIS [facility] Condition: Stable Is patient prescribed a controlled substance at d/c from ED?: No Referrals: Stephen Tracy [Primary Care Provider] - 1-2 days Time of Disposition: 17:00 Decision to Admit Reason: Admit from EC Decision Date: 12/29/22 Decision Time: 17:00
[2022-12-29] MEDS ORDERED: ALBUTEROL NEBULIZED 2.5 MG/3 ML INHALATION PRN (21:18)
[2022-12-29] MEDS: VENLAFAXINE HCL ER 75 MG CAP PO SCH (21:37)
[2022-12-29] MEDS: ATORVASTATIN 80 MG TAB PO SCH (22:16)
[2022-12-29] MEDS: KETOROLAC 15 MG/ML 1 ML VIAL IVP SCH (22:17)
[2022-12-30] MEDS: KETOROLAC 15 MG/ML 1 ML VIAL IVP SCH ×4 (06:14→23:42)
[2022-12-30] MEDS: SYMBICORT 80-4.5 MCG INHALER INHALATION SCH ×2 (08:13→20:26)
[2022-12-30] MEDS: VENLAFAXINE HCL ER 75 MG CAP PO SCH (11:32)
[2022-12-30] MEDS: THIAMINE 100 MG TAB PO SCH (11:32)
[2022-12-30] MEDS: LORazepam 2 MG/ML INJ IV PRN ×2 (11:50→20:24)
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
[2022-12-30] MEDS: ATORVASTATIN 80 MG TAB PO SCH (20:24)
[2022-12-30 20:25] VITALS: RESP 16
[2022-12-31] MEDS: LORazepam 2 MG/ML INJ IV PRN (01:46)
[2022-12-31] MEDS ORDERED: diphenhydrAMINE 25 MG CAP PO PRN (02:51)
[2022-12-31] MEDS: KETOROLAC 15 MG/ML 1 ML VIAL IVP SCH ×2 (05:43→12:56)
[2022-12-31] MEDS: VENLAFAXINE HCL ER 75 MG CAP PO SCH (07:56)
[2022-12-31] MEDS: THIAMINE 100 MG TAB PO SCH (07:56)
[2022-12-31] MEDS: SYMBICORT 80-4.5 MCG INHALER INHALATION SCH (08:01)
[2022-12-31 08:41] VITALS: BP 121/77; PULSE 82; TEMP 98.2
[2022-12-31] MEDS ORDERED: CHOLECALCIFEROL 25 MCG (1000 IU) TABLET PO SCH (09:00)
[2022-12-31] MEDS ORDERED: NON FORMULARY DRUG (Omega-3 Fatty Acids [Omega-3] 1,000 MG Capsule) PO SCH (09:00)
[2022-12-31 11:24] LABS: ALT 122 U/L (8-44); AST 164 U/L (13-35); Albumin 3.6 d/dL (3.8-4.9); Alkaline Phosphatase 86 U/L (41-126); BUN/Creat Ratio 20.67 Ratio (12.00-20.00); Blood Urea Nitrogen 12.4 mg/dL (9.0-27.0); Calcium 8.9 mg/dL (8.7-10.3); Carbon Dioxide 24.7 mmol/L (21.6-31.8); Chloride 106 mmol/L (96-109); Glucose 107 mg/dL (70-110); Potassium 4.2 mmol/L (3.5-5.5); Sodium 140 mmol/L (135-145); Total Bilirubin 0.2 mg/dL (0.3-1.2); Total Protein 5.6 d/dL (6.2-8.2)
[2022-12-31 11:27] LABS: Basophils # (A) 0.01 X 10*3/uL (0.00-0.10); Basophils % (A) 0.2 %; Eosinophils # (A) 0.02 X 10*3/uL (0.04-0.35); Eosinophils % (A) 0.5 %; HCT 38.5 % (37.2-46.3); HGB 12.6 d/dL (12.0-15.0); Lymphocytes # (A) 1.64 X 10*3/uL (0.90-5.00); Lymphocytes % (A) 37.8 %; MCHC 32.7 d/dL (32.0-37.0); MCV 97.7 FL (80.0-97.0); Mean Platelet Volume 10.7 FL (9.5-12.2); Monocytes # (A) 0.51 X 10*3/uL (0.20-1.00); Monocytes % (A) 11.8 %; NRBC Per 100 WBC 0 X 10*3/uL (0.00-0.01); Neutrophils # (A) 2.14 X 10*3/uL (1.80-7.70); Neutrophils % (A) 49.2 %; Platelet Count 198 X 10*3/uL (140-440); RBC 3.94 X 10*6/uL (4.10-5.20); WBC 4.34 X 10*3/uL (4.50-10.00)
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
== END 2022-12-31 15:00 | disposition home or self-care (01) ==
LOC: EC 14:43 → 5NMEDONC 17:49 → INTOOBSV 17:49 → 5NMEDONC 22:04 → 4SSUR 12-30 02:23 → UNDODISIN 12-31 15:00
PROVIDERS: ADMIT Hospitalist; ATTEND Hospitalist
DX: F10.231 Alcohol dependence with withdrawal delirium (principal); K70.10 Alcoholic hepatitis without ascites; Y90.0 Blood alcohol level of less than 20 mg/100 ml; I10 Essential (primary) hypertension; E11.9 Type 2 diabetes mellitus without complications; J44.9 Chronic obstructive pulmonary disease, unspecified; M79.7 Fibromyalgia; F41.9 Anxiety disorder, unspecified; F31.9 Bipolar disorder, unspecified; F17.200 Nicotine dependence, unspecified, uncomplicated; Z79.899 Other long term (current) drug therapy; Z79.51 Long term (current) use of inhaled steroids; Z88.0 Allergy status to penicillin; Z88.2 Allergy status to sulfonamides; Z88.1 Allergy status to other antibiotic agents
CPT/HCPCS: 96376 ×2; 96361; 96372; 96374; 96375; 99285; 36415; 94640 ×3; 93005; 80053 ×2; 83690; 83735; 85025 ×2; 70150; G0378 ×3; G0480; J2060 ×3; J3411; J1885 ×3; 80320

== ENCOUNTER 2023-03-12 21:54 | Emergency (ER) | payer MEDICARE ==
--- NOTE | 2023-03-13 01:13 | ED ---
Psych HPI - General Source: patient Mode of arrival: ambulatory <Tiffany Shelley - Last Filed: 03/13/23 06:25> <Reyes Stuart - Last Filed: 03/13/23 19:58> - General Chief Complaint: Psychiatric Symptoms Stated Complaint: Mental Health Time Seen by Provider: 03/12/23 22:30 - History of Present Illness Initial Comments: 57-year-old female presents emergency department by her nieces. She called them this evening reporting that she was feeling suicidal with a plan to jump off a bridge. She lost her son 2-1/2 months ago. States that she is not coping well with his . She is seeing a counselor and taking medications however state it is not helping. She denies attempting to harm herself. Admits that she drinks alcohol however this is not to harm herself. She denies any drug use. Denies any hallucinations.No other alleviating, precipitating or modifying factors (Tiffany Shelley) - Related Data Home Medications Medication Instructions Recorded Confirmed Budesonide/Formoterol Fumarate 2 puff INHALATION RT-BID 12/29/22 03/13/23 [Symbicort 80-4.5 Mcg Inhaler] EPINEPHrine (Auto Inject) [Epipen] 0.3 mg IM ONCE PRN 12/29/22 03/13/23 Ibuprofen [Motrin] 800 mg PO Q8H PRN 12/29/22 03/13/23 Multivitamins, Thera [Multivitamin 1 tab PO DAILY 12/29/22 03/13/23 (formulary)] Rosuvastatin [Crestor] 20 mg PO HS 12/29/22 03/13/23 Albuterol Inhaler [Ventolin Hfa 1 - 2 puff INHALATION RT-Q4H PRN 01/15/23 03/13/23 Inhaler] Ipratropium-Albuterol Nebulize 3 ml INHALATION RT-QID PRN 03/13/23 03/13/23 [Duoneb 0.5 mg-3 mg/3 ml Soln] LORazepam [Ativan] 0.5 mg PO TID 03/13/23 03/13/23 Metoprolol Tartrate [Lopressor] 12.5 mg PO BID 03/13/23 03/13/23 Venlafaxine HCl [Effexor XR] 225 mg PO DAILY 03/13/23 03/13/23 hydrOXYzine HCL [Atarax] 20 - 30 mg PO Q8H PRN 03/13/23 03/13/23 Previous Rx's Medication Instructions Recorded Thiamine [Vitamin B-1] 100 mg PO DAILY #30 tab 12/31/22 Allergies Allergy/AdvReac Type Severity Reaction Status Date / Time azithromycin [From Zithromax] Allergy Anaphylaxis Verified 03/13/23 13:31 erythromycin base Allergy Anaphylaxis Verified 03/13/23 13:31 Penicillins Allergy Anaphylaxis Verified 03/13/23 13:31 Sulfa (Sulfonamide Allergy Anaphylaxis Verified 03/13/23 13:31 Antibiotics) sulfamethoxazole Allergy Anaphylaxis Verified 03/13/23 13:31 [From Bactrim] trimethoprim [From Bactrim] Allergy Anaphylaxis Verified 03/13/23 13:31 venom-honey bee Allergy Anaphylaxis Verified 03/13/23 13:31 [bee venom (honey bee)] Review of Systems ROS Other: All systems not noted in ROS Statement are negative. <Tiffany Shelley - Last Filed: 03/13/23 06:25> ROS Other: All systems not noted in ROS Statement are negative. <Reyes Stuart - Last Filed: 03/13/23 19:58> ROS Statement: Those systems with pertinent positive or pertinent negative responses have been documented in the HPI. Past Medical History Past Medical History: Asthma, COPD, Fibromyalgia Additional Past Medical History / Comment(s): anxiety History of Any Multi-Drug Resistant Organisms: MRSA Date of last positivie culture/infection: 1999 MDRO Source:: buttocks Past Surgical History: Section, Hysterectomy, Tubal Ligation Past Anesthesia/Blood Transfusion Reactions: No Reported Reaction Past Psychological History: Anxiety, Bipolar, Depression Smoking Status: Current every day smoker Past Alcohol Use History: Daily Past Drug Use History: Marijuana - Past Family History Father Family Medical History: Cancer Additional Family Medical History / Comment(s): Father from throat cancer. He also suffered from depression and attempted suicide. Mother Family Medical History: Congestive Heart Failure (CHF), COPD Additional Family Medical History / Comment(s): Mother is from heart failure with probable history of bipolar disorder. Sister(s) Family Medical History: COPD Additional Family Medical History / Comment(s): Patient has 2 sisters one with COPD and one with depression. Patient does not have any brothers. Daughter(s) Family Medical History: Asthma Son(s) Family Medical History: No Reported History <Tiffany Shelley - Last Filed: 03/13/23 06:25> General Exam Limitations: no limitations General appearance: alert, in no apparent distress, appears intoxicated Head exam: Present: atraumatic, normocephalic, normal inspection Eye exam: Present: normal appearance, PERRL, EOMI. Absent: scleral icterus, c onjunctival injection, periorbital swelling ENT exam: Present: normal exam, mucous membranes moist Neck exam: Present: normal inspection. Absent: tenderness, meningismus, lymphadenopathy Respiratory exam: Present: normal lung sounds bilaterally. Absent: respiratory distress, wheezes, rales, rhonchi, stridor Cardiovascular Exam: Present: regular rate, normal rhythm, normal heart sounds. Absent: systolic murmur, diastolic murmur, rubs, gallop, clicks GI/Abdominal exam: Present: soft, normal bowel sounds. Absent: distended, tenderness, guarding, rebound, rigid Extremities exam: Present: normal inspection, full ROM, normal capillary refill. Absent: tenderness, pedal edema, joint swelling, calf tenderness Back exam: Present: normal inspection Neurological exam: Present: alert, altered, CN II-XII intact Psychiatric exam: Present: depressed, suicidal ideation Skin exam: Present: warm, dry, intact, normal color. Absent: rash <Tiffany Shelley - Last Filed: 03/13/23 06:25> Course Vital Signs 03/12/23 03/13/23 03/13/23 22:29 00:00 06:00 Temperature 97.3 F L 98.1 F 98.8 F Pulse Rate 97 85 72 Respiratory 18 16 16 Rate Blood Pressure 101/63 90/53 109/63 O2 Sat by Pulse 93 L 93 L 95 Oximetry 03/13/23 15:50 Temperature 98.1 F Pulse Rate 88 Respiratory 18 Rate Blood Pressure 120/69 O2 Sat by Pulse 94 L Oximetry Medical Decision Making <Tiffany Shelley - Last Filed: 03/13/23 06:25> <Reyes Stuart - Last Filed: 03/13/23 19:58> - Medical Decision Making Was pt. sent in by a medical professional or institution (Dr., PA, FLIGHT SOFTWARE TEST ENGINEER, urgent care, hospital, or halfway...) When possible be specific @ -No Did you speak to anyone other than the patient for history (EMS, parent, family, police, friend...)? What history was obtained from this source @ -No Did you review nursing and triage notes (agree or disagree)? Why? @ -I reviewed and agree with nursing and triage notes Were old charts reviewed (outside hosp., previous admission, EMS record, old EKG, old radiological studies, urgent care reports/EKG's, halfway records)? Report findings @ -No old charts were reviewed Differential Diagnosis (chest pain, altered mental status, abdominal pain women, abdominal pain men, vaginal bleeding, weakness, fever, dyspnea, syncope, headache, dizziness, GI bleed, back pain, seizure, CVA, palpatations, mental health, musculoskeletal)? @ -Differential Mental Health Depression, anxiety, bipolar, psychosis, schizophrenia, borderline personality, situational depression, adjustment disorder, behavioral disorder, brain tumor, malingering, substance abuse, encephalopathy, medication reaction, dementia, hypothyroidism, degenerative neurologic disorder, lupus.... This is not meant to be all-inclusive list EKG interpreted by me (3pts min.). @ -Not done X-rays interpreted by me (1pt min.). @ -None done CT interpreted by me (1pt min.). @ -None done U/S interpreted by me (1pt. min.). @ -None done What testing was considered but not performed or refused? (CT, X-rays, U/S, labs)? Why? @ -None What meds were considered but not given or refused? Why? @ -None Did you discuss the management of the patient with other professionals (professionals i.e. [facility] Vieira, FLIGHT SOFTWARE TEST ENGINEER, lab, RT, psych nurse, social scientist, senior mechanical development engineer, teacher, police liaison officer, window caser)? Give summary @ -Spoke with EPS nurse Was smoking cessation discussed for >3mins.? @ -No Was critical care preformed (if so, how long)? @ -No Were there social determinants of health that impacted care today? How? (Homelessness, low income, unemployed, alcoholism, drug addiction, transportation, low edu. Level, literacy, decrease access to med. care, residential, rehab)? @ -No Was there de-escalation of care discussed even if they declined (Discuss DNR or withdrawal of care, Hospice)? DNR status @ -No What co-morbidities impacted this encounter? (DM, HTN, Smoking, COPD, CAD, Cancer, CVA, ARF, Chemo, Hep., AIDS, mental health diagnosis, sleep apnea, morbid obesity)? @ -None Was patient admitted / discharged? Hospital course, mention meds given and route, prescriptions, significant lab abnormalities, going to OR and other pertinent info. @ -Upon arrival patient was placed into room 9. Thorough history and physical exam was performed. Patient admits depression with suicidal ideations. She is currently intoxicated. Patient will be sober around 4:30 AM and will require EPS evaluation after this. Patient will be signed out to oncoming physician Undiagnosed new problem with uncertain prognosis? @ -Yes Drug Therapy requiring intensive monitoring for toxicity (Heparin, Nitro, Insulin, Cardizem)? @ -No Were any procedures done? @ -No Diagnosis/symptom? @ -Acute depression Acute, or Chronic, or Acute on Chronic? @ -acute Uncomplicated (without systemic symptoms) or Complicated (systemic symptoms)? @ -default Side effects of treatment? @ -No Exacerbation, Progression, or Severe Exacerbation? @ -No Poses a threat to life or bodily function? How? (Chest pain, USA, ID, pneumonia, PE, COPD, DKA, ARF, appy, cholecystitis, CVA, Diverticulitis, Homicidal, Suicidal, threat to staff... and all critical care pts) @ -No (Tiffany Shelley) Patient was pending psychiatric evaluation. Bre of EPS notified me that patient was cleared for discharge home. Patient presented for depression. She'll be discharged home with resources instructions to follow-up. Patient was in agreement this plan. I was in agreement this plan. Diagnosis/symptom? @ -Encounter for psychiatric evaluation, depression Acute, or Chronic, or Acute on Chronic? @ -Acute Uncomplicated (without systemic symptoms) or Complicated (systemic symptoms)? @ -Uncomplicated Side effects of treatment? @ -none Exacerbation, Progression, or Severe Exacerbation] @ -no Poses a threat to life or bodily function? @ -no (Reyes Stuart) - Lab Data Lab Results 03/13/23 Range/Units 06:09 Urine Color Colorless Urine Appearance Clear (Clear) Urine pH 6.5 (5.0-8.0) Ur Specific [place] 1.018 (1.001-1.035) Urine Protein Negative (Negative) Urine Glucose (UA) Negative (Negative) Urine Ketones Negative (Negative) Urine Blood Negative (Negative) Urine Nitrite Negative (Negative) Urine Bilirubin Negative (Negative) Urine Urobilinogen <2.0 (<2.0) mg/dL Ur Leukocyte Esterase Trace H (Negative) Urine RBC 2 (0-5) /hpf Urine WBC 4 (0-5) /hpf Ur Squamous Epith Cells 5 H (0-4) /hpf Hyaline Casts 3 H (0-2) /lpf Urine Mucus Rare H (None) /hpf Urine Opiates Screen Not Detected (NotDetected) Ur Oxycodone Screen Not Detected (NotDetected) Urine Methadone Screen Not Detected (NotDetected) Ur Propoxyphene Screen Not Detected (NotDetected) Ur Barbiturates Screen Not Detected (NotDetected) U Tricyclic Antidepress Not Detected (NotDetected) Ur Phencyclidine Scrn Not Detected (NotDetected) Ur Amphetamines Screen Not Detected (NotDetected) U Methamphetamines Scrn Not Detected (NotDetected) U Benzodiazepines Scrn Detected H (NotDetected) Urine Cocaine Screen Not Detected (NotDetected) U Marijuana (THC) Screen Detected H (NotDetected) Disposition <Tiffany Shelley - Last Filed: 03/13/23 06:25> Is patient prescribed a controlled substance at d/c from ED?: No Time of Disposition: 15:25 <Reyes Stuart - Last Filed: 03/13/23 19:58> Clinical Impression: Depression, Encounter for psychiatric assessment Disposition: HOME SELF-CARE Condition: Good Additional Instructions: follow safety plan and follow up instructions. Referrals: Stephen Tracy [Primary Care Provider] - 1-2 days
[2023-03-13 06:32] LABS: Appearance,Urine Clear (Clear); Bilirubin,Urine Negative (Negative); Blood,Urine Negative (Negative); Color,Urine Colorless; Glucose,Urine (UA) Negative (Negative); Hyaline Casts,Urine 3 /lpf (0-2); Ketones,Urine Negative (Negative); Leukocyte Esterase,Urine Trace (Negative); Mucus,Urine Rare /hpf; Nitrite,Urine Negative (Negative); PH, Urine 6.5 (5.0-8.0); Protein,Urine Negative (Negative); RBC,Urine 2 /hpf (0-5); Specific Gravity,Urine 1.018 (1.001-1.035); Squamous Epithelial Cell,Urine 5 /hpf (0-4); Urobilinogen,Urine <2.0 mg/dL (<2.0); WBC,Urine 4 /hpf (0-5)
[2023-03-13 06:40] LABS: Amphetamine Screen,Urine Not Detected (NotDetected); Barbiturate Screen,Urine Not Detected (NotDetected); Benzodiazepines Screen,Urine Detected (NotDetected); Cocaine Screen,Urine Not Detected (NotDetected); Methadone Screen, Urine Not Detected (NotDetected); Opiate Screen,Urine Not Detected (NotDetected); Oxycodone Screen, Urine Not Detected (NotDetected); Phencyclidine Screen,Urine Not Detected (NotDetected); Tricyclic Antidepressant,Urine Not Detected (NotDetected); Urn Cannabinoid Scrn Detected (NotDetected)
[2023-03-13] MEDS ORDERED: ACETAMINOPHEN TAB 325 MG TAB PO STA (12:13)
[2023-03-13 16:08] VITALS: BP 120/69; PULSE 88; RESP 18; TEMP 98.1
== END 2023-03-13 15:54 | disposition home or self-care (01) ==
LOC: EC 21:54
DX: Z00.8 Encounter for other general examination (principal); F32.A Depression, unspecified; J44.9 Chronic obstructive pulmonary disease, unspecified; F41.9 Anxiety disorder, unspecified; F17.200 Nicotine dependence, unspecified, uncomplicated; F12.90 Cannabis use, unspecified, uncomplicated; Z88.0 Allergy status to penicillin; Z88.2 Allergy status to sulfonamides; Z91.030 Bee allergy status; Z88.8 Allergy status to other drugs, medicaments and biological substances; Z79.51 Long term (current) use of inhaled steroids; Z79.899 Other long term (current) drug therapy
CPT/HCPCS: 80306; 81001; 82075; 99285

== ENCOUNTER 2023-03-29 10:33 | Emergency (ER) | payer MEDICARE ==
--- NOTE | 2023-03-29 11:07 | ED ---
General Adult HPI - General Source: patient, RN notes reviewed Mode of arrival: ambulatory Limitations: no limitations <Pedro Bauer - Last Filed: 03/29/23 11:06> - General Source: patient, family, RN notes reviewed <Edith Aguayo - Last Filed: 03/29/23 15:07> - General Stated complaint: fell, shoulder pain rt, Time Seen by Provider: 03/29/23 11:06 - History of Present Illness Initial comments: 57-year-old female presents emergency Department chief complaint right shoulder pain. Patient states that she fell last night with right shoulder no head injury no loss conscious. (Pedro Bauer) Patient is a 57-year-old female presented ER chief complaint of right shoulder injury. Patient states she was taking her dog last night when she fell landing on her right shoulder. Patient states she heard a crack and a pop. Patient also states that her arm has been painful since incident. Patient does endorse a tingling sensation in her digits. Patient denies any other injuries. (Edith Aguayo) - Related Data Home Medications Medication Instructions Recorded Confirmed Budesonide/Formoterol Fumarate 2 puff INHALATION RT-BID 12/29/22 03/13/23 [Symbicort 80-4.5 Mcg Inhaler] EPINEPHrine (Auto Inject) [Epipen] 0.3 mg IM ONCE PRN 12/29/22 03/13/23 Ibuprofen [Motrin] 800 mg PO Q8H PRN 12/29/22 03/13/23 Multivitamins, Thera [Multivitamin 1 tab PO DAILY 12/29/22 03/13/23 (formulary)] Rosuvastatin [Crestor] 20 mg PO HS 12/29/22 03/13/23 Albuterol Inhaler [Ventolin Hfa 1 - 2 puff INHALATION RT-Q4H PRN 01/15/23 03/13/23 Inhaler] Ipratropium-Albuterol Nebulize 3 ml INHALATION RT-QID PRN 03/13/23 03/13/23 [Duoneb 0.5 mg-3 mg/3 ml Soln] LORazepam [Ativan] 0.5 mg PO TID 03/13/23 03/13/23 Metoprolol Tartrate [Lopressor] 12.5 mg PO BID 03/13/23 03/13/23 Venlafaxine HCl [Effexor XR] 225 mg PO DAILY 03/13/23 03/13/23 hydrOXYzine HCL [Atarax] 20 - 30 mg PO Q8H PRN 03/13/23 03/13/23 Previous Rx's Medication Instructions Recorded Thiamine [Vitamin B-1] 100 mg PO DAILY #30 tab 12/31/22 Allergies Allergy/AdvReac Type Severity Reaction Status Date / Time azithromycin [From Zithromax] Allergy Anaphylaxis Verified 03/29/23 13:44 erythromycin base Allergy Anaphylaxis Verified 03/29/23 13:44 Penicillins Allergy Anaphylaxis Verified 03/29/23 13:44 Sulfa (Sulfonamide Allergy Anaphylaxis Verified 03/29/23 13:44 Antibiotics) sulfamethoxazole Allergy Anaphylaxis Verified 03/29/23 13:44 [From Bactrim] trimethoprim [From Bactrim] Allergy Anaphylaxis Verified 03/29/23 13:44 venom-honey bee Allergy Anaphylaxis Verified 03/29/23 13:44 [bee venom (honey bee)] Review of Systems ROS Other: All systems not noted in ROS Statement are negative. <Pedro Bauer - Last Filed: 03/29/23 11:06> ROS Other: All systems not noted in ROS Statement are negative. <Edith Aguayo - Last Filed: 03/29/23 15:07> ROS Statement: Those systems with pertinent positive or pertinent negative responses have been documented in the HPI. Past Medical History Past Medical History: Asthma, COPD, Fibromyalgia Additional Past Medical History / Comment(s): anxiety History of Any Multi-Drug Resistant Organisms: MRSA Date of last positivie culture/infection: 1999 MDRO Source:: buttocks Past Surgical History: Section, Hysterectomy, Tubal Ligation Past Anesthesia/Blood Transfusion Reactions: No Reported Reaction Past Psychological History: Anxiety, Bipolar, Depression Smoking Status: Current every day smoker Past Alcohol Use History: Daily Past Drug Use History: Marijuana - Past Family History Father Family Medical History: Cancer Additional Family Medical History / Comment(s): Father from throat cancer. He also suffered from depression and attempted suicide. Mother Family Medical History: Congestive Heart Failure (CHF), COPD Additional Family Medical History / Comment(s): Mother is from heart failure with probable history of bipolar disorder. Sister(s) Family Medical History: COPD Additional Family Medical History / Comment(s): Patient has 2 sisters one with COPD and one with depression. Patient does not have any brothers. Daughter(s) Family Medical History: Asthma Son(s) Family Medical History: No Reported History <Pedro Bauer - Last Filed: 03/29/23 11:06> General Exam <Pedro Bauer - Last Filed: 03/29/23 11:06> General appearance: alert, in no apparent distress Head exam: Present: atraumatic, normocephalic, normal inspection Eye exam: Present: normal appearance, PERRL, EOMI. Absent: scleral icterus, conjunctival injection, periorbital swelling Respiratory exam: Present: normal lung sounds bilaterally. Absent: respiratory distress, wheezes, rales, rhonchi, stridor Cardiovascular Exam: Present: regular rate, normal rhythm, normal heart sounds. Absent: systolic murmur, diastolic murmur, rubs, gallop, clicks Extremities exam: Present: other (Right shoulder noticable deformity and edema. 2+ right radial pulse. Sensation intact.) Neurological exam: Present: alert, oriented X3, CN II-XII intact Psychiatric exam: Present: normal affect, normal mood Skin exam: Present: warm, dry, intact, normal color. Absent: rash <Edith Aguayo - Last Filed: 03/29/23 15:07> - General Exam Comments Initial Comments: Visual Physical Exam Vital signs reviewed General: Well-appearing, nontoxic, no acute distress. Head: Normocephalic, atraumatic Eyes: PERRLA, EOMI ENT: Airway patent Chest: Nonlabored breathing Skin: No visual rash, normal skin tone Neuro: Alert and oriented 3 Musculoskeletal: No gross abnormalities (Pedro Bauer) Course Vital Signs 03/29/23 11:08 Temperature 98.2 F Pulse Rate 99 Respiratory 18 Rate Blood Pressure 122/77 O2 Sat by Pulse 96 Oximetry Procedures - Orthopedic Splinting/Casting Injury #1 Side: right Upper Extremity Injury Location: shoulder Upper Extremity Immobilizer: sling/shoulder immobilizer <Edith Aguayo - Last Filed: 03/29/23 15:07> Medical Decision Making <Pedro Bauer - Last Filed: 03/29/23 11:06> - Radiology Data Radiology results: report reviewed, image reviewed <OlivierEdith - Last Filed: 03/29/23 15:07> - Medical Decision Making I completed the quick note portion of this chart signed Pedro Bauer PA-C (Pedro Bauer) Was pt. sent in by a medical professional or institution ([facility] Vieira, BASIC ACOUSTIC ANALYST, urgent care, hospital, or snf...) When possible be specific @ -No Did you speak to anyone other than the patient for history (EMS, parent, family, police, friend...)? What history was obtained from this source @ -Family Did you review nursing and triage notes (agree or disagree)? Why? @ -I reviewed and agree with nursing and triage notes Were old charts reviewed (outside hosp., previous admission, EMS record, old EKG, old radiological studies, urgent care reports/EKG's, snf records)? Report findings @ -No old charts were reviewed Differential Diagnosis (chest pain, altered mental status, abdominal pain women, abdominal pain men, vaginal bleeding, weakness, fever, dyspnea, syncope, headache, dizziness, GI bleed, back pain, seizure, CVA, palpatations, mental health, musculoskeletal)? @ -Differential Musculoskeletal: Muscular strain, contusion, ligament sprain, fracture, arthritis, septic arthritis, bursitis, cellulitis, muscle spasm, nerve compression, DVT, arterial occlusion, herpes zoster, electrolyte abnormality, tumor.... This is not meant to be in all inclusive list EKG interpreted by me (3pts min.). @ -None X-rays interpreted by me (1pt min.). @ -X-rays of right shoulder show a comminuted intra-articular proximal right humerus fracture with angulation laterally and displacement medially and posteriorly. CT interpreted by me (1pt min.). @ -CT of right shoulder Jeancarlos protocol showed a comminuted fracture of the right humeral neck. U/S interpreted by me (1pt. min.). @ -None done What testing was considered but not performed or refused? (CT, X-rays, U/S, labs)? Why? @ -None What meds were considered but not given or refused? Why? @ -None Did you discuss the management of the patient with other professionals (professionals i.e. , [facility], BASIC ACOUSTIC ANALYST, lab, RT, psych nurse, social worker health services, geodetic computator, teacher, public safety officer, briefcase sewer)? Give summary @ -Yes, I discussed this case with Mee from [facility]. She advised a CT scan of right shoulder with jeancarlos protocol. Was smoking cessation discussed for >3mins.? @ -No Was critical care preformed (if so, how long)? @ -No Were there social determinants of health that impacted care today? How? (Homelessness, low income, unemployed, alcoholism, drug addiction, transportation, low edu. Level, literacy, decrease access to med. care, fdc, rehab)? @ -No Was there de-escalation of care discussed even if they declined (Discuss DNR or withdrawal of care, Hospice)? DNR status @ -No What co-morbidities impacted this encounter? (DM, HTN, Smoking, COPD, CAD, Cancer, CVA, ARF, Chemo, Hep., AIDS, mental health diagnosis, sleep apnea, morbid obesity)? @ -None Was patient admitted / discharged? Hospital course, mention meds given and route, prescriptions, significant lab abnormalities, going to OR and other pertinent info. @ -Discharged. Patient is a 57-year-old female presented ER with chief complaint of right shoulder injury. On examination there was swelling and deformity noted of the right shoulder. Ecchymosis was also present. Patient received 1 mg IM Dilaudid for pain control. X-ray of right shoulder shows a comminuted intra-articular proximal humerus fracture with angulation laterally and displacement medially and posteriorly. I spoke with Mee from [facility] who advised a CT of the right shoulder with Jeancarlos protocol. While in CT patient was in too much pain to lay flat so test could not be completed. Patient then received another 1 mg of IM Dilaudid. Patient also received by mouth Zofran. Upon reevaluation, patient states her pain was still an 8 out of 10 and she was unable to lay down due to the pain. IV access was established and patient received 2 mg of IV morphine and 5 mg of Reglan for pain control. Patient stat es her pain is now tolerable and was able to undergo computed tomography scan. Computed tomography scan showed a comminuted fracture of the right humeral neck. Patient was placed in a sling and will be discharged with a starter pack of [place] for pain control. I discussed with the patient to follow-up with orthopedics as appointment was made on 03/31/23 by case management. Patient will be discharged in stable condition with follow-up to orthopedics. Return parameters were discussed. Patient expressed understanding and agreement with care plan. Undiagnosed new problem with uncertain prognosis? @ -No Drug Therapy requiring intensive monitoring for toxicity (Heparin, Nitro, Insulin, Cardizem)? @ -No Were any procedures done? @ -No Diagnosis/symptom? @ - Right comminuted fracture of humeral neck Acute, or Chronic, or Acute on Chronic? @ -Acute Uncomplicated (without systemic symptoms) or Complicated (systemic symptoms)? @ -Uncomplicated Side effects of treatment? @ -No Exacerbation, Progression, or Severe Exacerbation? @ -No Poses a threat to life or bodily function? How? (Chest pain, USA, [place], pneumonia, PE, COPD, DKA, ARF, appy, cholecystitis, CVA, Diverticulitis, Homicidal, Suicidal, threat to staff... and all critical care pts) @ -No (Edith Aguayo) Disposition <Pedro Bauer - Last Filed: 03/29/23 11:06> Is patient prescribed a controlled substance at d/c from ED?: No Time of Disposition: 14:58 <Edith Aguayo - Last Filed: 03/29/23 15:07> Clinical Impression: Fracture of humerus Disposition: HOME SELF-CARE Condition: Stable Instructions (If sedation given, give patient instructions): Arm Fracture in Adults (ED) Additional Instructions: Please return to the Emergency Department if symptoms worsen or any other concerns. Referrals: Frances Suazo NPC [REFERRING] - 1-2 days Ama Thomas DO [Doctor of Osteopathic Medicine] - 03/31/23 10:30 am (Please bring ID and insurance cards)
[2023-03-29] MEDS ORDERED: HYDROmorphone 1 MG/ML 1 ML SYRINGE IM STA ×2 (11:13→12:42)
[2023-03-29 11:15] VITALS: BP 122/77; PULSE 99; RESP 18; TEMP 98.2
--- NOTE | 2023-03-29 12:03 | XR ---
EXAMINATION TYPE: XR shoulder limited RT DATE OF EXAM: 03/29/2023 11:53 AM CLINICAL INDICATION:Female, 57 years old with history of fall, pain; PHH COMPARISON: None TECHNIQUE: XR shoulder limited RT; shoulder was examined in AP, internally rotated and scapular Y pr ojections. FINDINGS/IMPRESSION: 1. Comminuted intra-articular proximal right humerus fracture with angulation laterally displacement medially and posteriorly. 2. No additional fractures visualized.
[2023-03-29] MEDS ORDERED: ONDANSETRON ODT 4 MG TAB PO STA (12:27)
[2023-03-29] MEDS ORDERED: METOCLOPRAMIDE 5 MG/ML 2 ML VIAL IVP STA (13:40)
[2023-03-29] MEDS ORDERED: MORPHINE SULFATE 2 MG/ML SYRINGE IVP STA (13:40)
--- NOTE | 2023-03-29 14:43 | CT ---
EXAMINATION TYPE: CT jeancarlos shoulder RT wo con DATE OF EXAM: 03/29/2023 COMPARISON: None HISTORY: Fall, Broken Shoulder CT DLP: 522.2 mGycm Automated exposure control for dose reduction was used. Contrast: None Technique: Axial images 3 mm thick sections. 3-D reconstructed images are reviewed on the computer. R econstructed images in the coronal and sagittal plane are reviewed. FINDINGS: There is a comminuted fracture at the neck of the humerus. Multiple fracture fragments are present. F emoral head has some mild inferior subluxation in relation to the glenoid. Increasing acromiohumeral joint space is evident. Acromioclavicular junction appears normal. Scapula and clavicle appear intact. IMPRESSION: 1. COMMINUTED FRACTURE RIGHT HUMERAL NECK
[2023-03-29] MEDS ORDERED: ACET/COD 300 MG/30 MG STARTER PACK 6 TAB BTL PO STA (14:58)
== END 2023-03-29 15:15 | disposition home or self-care (01) ==
LOC: EC 10:33
DX: S42.491A Other displaced fracture of lower end of right humerus, initial encounter for closed fracture (principal); J44.89 Other specified chronic obstructive pulmonary disease; F17.200 Nicotine dependence, unspecified, uncomplicated; F12.90 Cannabis use, unspecified, uncomplicated; F31.9 Bipolar disorder, unspecified; F41.9 Anxiety disorder, unspecified; Z79.51 Long term (current) use of inhaled steroids; Z79.899 Other long term (current) drug therapy; Z88.0 Allergy status to penicillin; Z88.1 Allergy status to other antibiotic agents; Z88.2 Allergy status to sulfonamides; Z91.030 Bee allergy status; W01.0XXA Fall on same level from slipping, tripping and stumbling without subsequent striking against object, initial encounter
CPT/HCPCS: 73020; 73200; 99284; 96374; 96375; 96372 ×2; J2765; J2270; J1170

== ENCOUNTER → 2023-03-31 | Outpatient (CLI) | payer MEDICARE | END | disposition home or self-care (01) | LOC: LABPAT 13:39 | PROVIDERS: ATTEND Orthopaedic Surgery Hand Surgery | DX: Z53.9 Procedure and treatment not carried out, unspecified reason (principal) ==

== ENCOUNTER → 2023-04-01 | Outpatient (CLI) | payer MEDICARE ==
[2023-04-01 11:26] LABS: INR 0.8 (<1.2); Partial Thromboplastin Time 23.1 sec (22.0-30.0); Prothrombin Time 9.2 sec (10.0-12.5)
[2023-04-01 15:39] LABS: HCT 31.4 % (37.2-46.3); HGB 10.1 g/dL (12.0-15.0); MCH 31.9 pg (27.0-32.0); MCHC 32.2 g/dL (32.0-37.0); MCV 99.1 FL (80.0-97.0); Mean Platelet Volume 10.3 FL (9.5-12.2); NRBC Per 100 WBC 0 X 10*3/uL (0.00-0.01); Platelet Count 311 X 10*3/uL (140-440); RBC 3.17 X 10*6/uL (4.10-5.20); RDW 14.3 % (11.5-14.5); WBC 8.84 X 10*3/uL (4.50-10.00)
[2023-04-01 16:06] LABS: ALT 15 U/L (8-44); AST 24 U/L (13-35); Albumin 3.9 g/dL (3.8-4.9); Albumin/Globulin Ratio 1.77 Ratio (1.60-3.17); Alkaline Phosphatase 89 U/L (41-126); Blood Urea Nitrogen 12.8 mg/dL (9.0-27.0); Calcium 9.1 mg/dL (8.7-10.3); Carbon Dioxide 26.5 mmol/L (21.6-31.8); Chloride 99 mmol/L (96-109); Globulin 2.2 g/dL (1.6-3.3); Glucose 112 mg/dL (70-110); Potassium 4.1 mmol/L (3.5-5.5); Sodium 135 mmol/L (135-145); Total Bilirubin 0.3 mg/dL (0.3-1.2); Total Protein 6.1 g/dL (6.2-8.2)
== END | disposition home or self-care (01) ==
LOC: LABWHC1 09:59
PROVIDERS: ATTEND Orthopaedic Surgery Hand Surgery
DX: Z01.812 Encounter for preprocedural laboratory examination (principal); Z22.322 Carrier or suspected carrier of Methicillin resistant Staphylococcus aureus; S42.91XA Fracture of right shoulder girdle, part unspecified, initial encounter for closed fracture; Y99.9 Unspecified external cause status
CPT/HCPCS: 36415; 80053; 85027; 85610; 85730; 87070; 93005

== ENCOUNTER 2023-04-05 11:04 | Inpatient (IN) | payer MEDICARE, OTHER ==
[~2023-04-05 11:04] MED LIST: ACETAMINOPHEN TAB 500 MG TAB PO PRN; CLINDAMYCIN 900 MG in DEXTROSE 5% IN WATER 50 ML IVPB PRN; DEXAMETHASONE SOD PHOSPHATE 10 MG/ML 1 ML VIAL IV PRN; HYDROmorphone 0.5 MG/0.5 ML SYRINGE IVP PRN; LIDOCAINE 1% (10MG/ML) FOR IV START INTRADERMA PRN; ONDANSETRON 4 MG/2 ML VIAL IVP ONE; TRANEXAMIC 1,000 MG/100ML-NACL 1,000 MG in SALINE 1 100ML.BAG IVPB PRN
[2023-04-05] MEDS: LACTATED RINGERS 1,000 ML IV SCH (11:51)
[2023-04-05] MEDS ORDERED: fentaNYL (PF) 50 MCG/ML 2 ML AMP IVP ONE ×3 (12:12→13:08)
[2023-04-05] MEDS ORDERED: SENNOSIDES-DOCUSATE SODIUM 1 EACH TAB PO PRN (13:16)
[2023-04-05] MEDS ORDERED: HYDROcodone/APAP 5-325MG 1 EACH TAB PO PRN ×2 (13:16)
[2023-04-05] MEDS ORDERED: HYDROmorphone 0.5 MG/0.5 ML SYRINGE IVP PRN (13:16)
[2023-04-05] MEDS ORDERED: ONDANSETRON 4 MG/2 ML VIAL IVP PRN (13:16)
[2023-04-05] MEDS ORDERED: SUCCINYLCHOLINE CHLORIDE 200 MG/10 ML VIAL IV ONE (14:47)
[2023-04-05] MEDS ORDERED: HYDROmorphone (PF) 1 MG/ML ONE (14:47)
[2023-04-05] MEDS ORDERED: GLYCOPYRROLATE 0.2 MG/ML 2 ML VIAL ONE (14:47)
[2023-04-05] MEDS ORDERED: NEOSTIGMINE 1 MG/ML 10 ML VIAL ONE (14:47)
[2023-04-05] MEDS ORDERED: PHENYLEPHRINE-0.9% NACL SYG 1,000 MCG/10 ML SYRINGE ONE (14:47)
[2023-04-05] MEDS ORDERED: TRANEXAMIC 1,000 MG/100ML-NACL PREMIX BAG ONE (14:47)
[2023-04-05] MEDS ORDERED: fentaNYL (PF) 50 MCG/ML 2 ML AMP ONE (14:47)
[2023-04-05] MEDS ORDERED: PROPOFOL 10 MG/ML 20 ML VIAL IV ONE (14:47)
[2023-04-05] MEDS ORDERED: MIDAZOLAM 2 MG/2 ML VIAL ONE (14:47)
[2023-04-05] MEDS ORDERED: ROCURONIUM 10 MG/ML (5 ML VIAL) IV ONE (14:47)
[2023-04-05] MEDS ORDERED: LIDOCAINE 1% INJ 10MG/ML (20 ML MDV) ONE (14:47)
[2023-04-05] MEDS ORDERED: ROPIVACAINE 5 MG/ML 30 ML VIAL MISCELLANE ONE (17:27)
[2023-04-05] MEDS ORDERED: LACTATED RINGERS 1,000 ML IV ONE (18:30)
--- NOTE | 2023-04-05 18:39 | XR ---
EXAMINATION TYPE: XR shoulder limited RT DATE OF EXAM: 04/05/2023 COMPARISON: NONE HISTORY: post RSA, assess alignment TECHNIQUE: Single view of the right shoulder FINDINGS: Postoperative changes of right shoulder arthroplasty with glenoid and humeral components we ll seated. Postoperative alignment is within normal limits. IMPRESSION: As above
[2023-04-05] MEDS: HYDROmorphone 1 MG/ML 1 ML SYRINGE IVP PRN (20:21)
[2023-04-05] MEDS ORDERED: IPRATROPIUM-ALBUTEROL 3 ML NEB INHALATION PRN (20:41)
[2023-04-05] MEDS ORDERED: ALBUTEROL HFA INHALER INHALATION PRN (20:41)
[2023-04-05] MEDS ORDERED: hydrOXYzine HCL 10 MG TAB PO PRN (20:41)
[2023-04-05] MEDS: METOPROLOL TARTRATE 25 MG TAB PO SCH (21:35)
[2023-04-05] MEDS: HYDROcodone/APAP 7.5-325MG 1 EACH TAB PO PRN (21:36)
[2023-04-05] MEDS: LORazepam 0.5 MG TAB PO SCH (21:36)
[2023-04-05] MEDS: ATORVASTATIN 40 MG TAB PO SCH (21:36)
[2023-04-06] MEDS: CLINDAMYCIN 900 MG in DEXTROSE 5% IN WATER 50 ML IVPB SCH ×4 (01:00→06:55)
[2023-04-06 05:21] LABS: Glucose,Whole Blood 158 mg/dL (70-110)
[2023-04-06] MEDS: HYDROcodone/APAP 7.5-325MG 1 EACH TAB PO PRN ×3 (05:28→17:31)
[2023-04-06] MEDS: THIAMINE 100 MG TAB PO SCH (08:20)
[2023-04-06] MEDS: LORazepam 0.5 MG TAB PO SCH ×3 (08:20→21:01)
[2023-04-06] MEDS: METOPROLOL TARTRATE 25 MG TAB PO SCH ×2 (08:20→21:00)
[2023-04-06] MEDS: MULTIVITAMINS, THERA 1 EACH TAB PO SCH (08:20)
[2023-04-06] MEDS: VENLAFAXINE HCL ER 75 MG CAP PO SCH (08:20)
[2023-04-06] MEDS: HYDROmorphone 0.5 MG/0.5 ML SYRINGE IVP PRN (08:22)
[2023-04-06] MEDS: SYMBICORT 80-4.5 MCG INHALER INHALATION SCH ×2 (09:29→21:12)
--- NOTE | 2023-04-06 11:58 | P.PN ---
Subjective Progress Note Date: 04/06/23 Principal diagnosis: Status post right reverse total shoulder arthroplasty This is a 57 year-old female post right reverse total shoulder arthroplasty. This is post-op day 1. The patient was evaluated at the bedside today. The patient denies nausea, vomiting, abdominal pain, shortness of breath, and chest pain this morning. She states her pain is not controlled at this time. The patient has been up to the bathroom. Objective - Vital Signs Vital signs: Vital Signs Temp 98.3 F 04/06/23 07:21 Pulse 86 04/06/23 07:21 Resp 20 04/06/23 07:21 BP 132/82 04/06/23 07:21 Pulse Ox 91 L 04/06/23 07:21 FiO2 Intake & Output 04/05/23 04/06/23 04/06/23 18:59 06:59 18:59 Intake Total 1750 Output Total 200 Balance 1550 Weight 75.8 kg 75.8 kg Intake: IV 1750 Output: Estimated Blood Loss 200 Other: # Voids 1 - Exam The patient does not appear in acute distress. Alert and orientated x3. Dressi ng is clean dry and intact. 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 Arm is soft. Good hand and wrist motion without difficulty. Sensation and circulatory status is intact. - Labs Labs: Abnormal Lab Results - Last 24 Hours (Table) 04/06/23 Range/Units 05:19 POC Glucose (mg/dL) 158 H (70-110) mg/dL Assessment and Plan (1) Closed fracture of proximal end of right humerus Current Visit: Yes Status: Acute Code(s): S42.201A - UNSP FRACTURE OF UPPER END OF RIGHT HUMERUS, INIT SNOMED Code(s): 73591431 (2) Status post reverse arthroplasty of right shoulder Current Visit: Yes Status: Acute Code(s): Z96.611 - PRESENCE OF RIGHT ARTIFICIAL SHOULDER JOINT SNOMED Code(s): 66497891265408319 (3) COPD (chronic obstructive pulmonary disease) Current Visit: Yes Status: Acute Code(s): J44.9 - CHRONIC OBSTRUCTIVE PULMONARY DISEASE, UNSPECIFIED SNOMED Code(s): 64646610 Plan: 1. Continue pain control, Percocet added today. May have Dilaudid PRN but start to wean if possible. 2. DVT prophylaxis with SCDs 3. Continue ambulation. Sling on when out of bed. 4. May work on elbow range of motion. No shoulder ROM. 5. Anticipate discharge home tomorrow once pain is controlled better.
[2023-04-06] MEDS: HYDROmorphone 1 MG/ML 1 ML SYRINGE IVP PRN ×3 (13:35→23:38)
--- NOTE | 2023-04-06 13:43 | P.CONS ---
History of Present Illness - Reason for Consult Consult date: 04/06/23 Medical management - History of Present Illness History of present illness; patient is a 57-year-old lady with past medical history significant for COPD, hypertension, hyperlipidemia who presented to the hospital for elective right total shoulder arthroplasty. Patient recently fell on ice and was evaluated at [facility] and was found to have fracture of surgical neck of right humerus, patient was placed on sling and was told to follow up outpatient with orthopedics. Patient continued to have severe pain of right shoulder associated with stiffness and reduced range of motion. O rthopedics evaluated the patient and recommended surgery. Patient underwent right total shoulder arthroplasty on 04/05. Postoperatively internal medicine team was consulted for medical management REVIEW OF SYSTEMS: CONSTITUTIONAL: No fever, no malaise, no fatigue. HEENT: No recent visual problems or hearing problems. Denied any sore throat. CARDIOVASCULAR: No chest pain, orthopnea, PND, no palpitations, no syncope. PULMONARY: No shortness of breath, no cough, no hemoptysis. GASTROINTESTINAL: No diarrhea, no nausea, no vomiting, no abdominal pain. NEUROLOGICAL: No headaches, no weakness, no numbness. HEMATOLOGICAL: Denies any bleeding or petechiae. GENITOURINARY: Denies any burning micturition, frequency, or urgency. MUSCULOSKELETAL/RHEUMATOLOGICAL: Complaining of right shoulder pain ENDOCRINE: Denies any polyuria or polydipsia. The rest of the 14-point review of systems is negative. PHYSICAL EXAMINATION: GENERAL: The patient is alert and oriented x3, not in any acute distress. Well developed, well nourished. HEENT: Pupils are round and equally reacting to light. EOMI. No scleral icterus. No conjunctival pallor. Normocephalic, atraumatic. No pharyngeal erythema. No thyromegaly. CARDIOVASCULAR: S1 and S2 present. No murmurs, rubs, or gallops. PULMONARY: Chest is clear to auscultation, no wheezing or crackles. ABDOMEN: Soft, nontender, nondistended, normoactive bowel sounds. No palpable organomegaly. MUSCULOSKELETAL: Right shoulder surgical incision seen, drain in place EXTREMITIES: No cyanosis, clubbing, or pedal edema. NEUROLOGICAL: Gross neurological examination did not reveal any focal deficits. SKIN: No rashes. Assessment and plan Status post right reverse total shoulder arthroplasty Closed fracture of proximal end of right humerus COPD Hypertension Hyperlipidemia Depression Monitor vital signs Monitor CBC Monitor CMP Continue postop care per orthopedics Continue DVT prophylaxis per orthopedics Continue pain management per orthopedics Resume Home meds Labs and medication were reviewed.. Continue same treatment. Continue with symptomatic treatment. Resume home medication. Monitor labs and vitals. DVT and GI prophylaxis. Further recommendations as per clinical course of the patient Dictation was produced using [employer] dictation software. please excuse any grammatical, word or spelling errors. Past Medical History Past Medical History: Asthma, COPD, Fibromyalgia, Pneumonia Additional Past Medical History / Comment(s): anxiety History of Any Multi-Drug Resistant Organisms: MRSA Year Discovered:: 1999 MDRO Source:: buttocks Past Surgical History: Section, Hysterectomy, Orthopedic Surgery, Tubal Ligation Additional Past Surgical History / Comment(s): rt hand surgery Past Anesthesia/Blood Transfusion Reactions: No Reported Reaction Past Psychological History: Anxiety, Bipolar, Depression Smoking Status: Current every day smoker Past Alcohol Use History: Occasional Additional Past Alcohol Use History / Comment(s): Patient is a smoker offor 40- 45 years,down to a few cig per day marijuana joint 1 per day for pain, no illicit drug use. Past Drug Use History: Marijuana Additional Drug Use History / Comment(s): refrain 24 hours prior to surgery - Past Family History Father Family Medical History: Cancer Additional Family Medical History / Comment(s): Father from throat cancer. He also suffered from depression and attempted suicide. Mother Family Medical History: Congestive Heart Failure (CHF), COPD Additional Family Medical History / Comment(s): Mother is from heart failure with probable history of bipolar disorder. Sister(s) Family Medical History: COPD Additional Family Medical History / Comment(s): Patient has 2 sisters one with COPD and one with depression. Patient does not have any brothers. Daughter(s) Family Medical History: Asthma Son(s) Family Medical History: No Reported History Medications and Allergies Home Medications Medication Instructions Recorded Confirmed Type Budesonide/Formoterol Fumarate 2 puff INHALATION RT-BID 12/29/22 04/05/23 History [Symbicort 80-4.5 Mcg Inhaler] EPINEPHrine (Auto Inject) [Epipen] 0.3 mg IM ONCE PRN 12/29/22 04/05/23 History Ibuprofen [Motrin] 800 mg PO Q8H PRN 12/29/22 04/05/23 History Multivitamins, Thera [Multivitamin 1 tab PO DAILY 12/29/22 04/05/23 History (formulary)] Rosuvastatin [Crestor] 20 mg PO HS 12/29/22 04/05/23 History Thiamine [Vitamin B-1] 100 mg PO DAILY #30 tab 12/31/22 04/05/23 Rx Albuterol Inhaler [Ventolin Hfa 1 - 2 puff INHALATION RT-Q4H PRN 01/15/23 04/05/23 History Inhaler] Ipratropium-Albuterol Nebulize 3 ml INHALATION RT-QID PRN 03/13/23 04/05/23 His tory [Duoneb 0.5 mg-3 mg/3 ml Soln] LORazepam [Ativan] 0.5 mg PO TID 03/13/23 04/05/23 History Metoprolol Tartrate [Lopressor] 12.5 mg PO BID 03/13/23 04/05/23 History Venlafaxine HCl [Effexor XR] 225 mg PO DAILY 03/13/23 04/05/23 History hydrOXYzine HCL [Atarax] 20 - 30 mg PO Q8H PRN 03/13/23 04/05/23 History Allergies Allergy/AdvReac Type Severity Reaction Status Date / Time azithromycin [From Zithromax] Allergy Anaphylaxis Verified 04/05/23 12:01 erythromycin base Allergy Anaphylaxis Verified 04/05/23 12:01 Penicillins Allergy Anaphylaxis Verified 04/05/23 12:01 Sulfa (Sulfonamide Allergy Anaphylaxis Verified 04/05/23 12:01 Antibiotics) sulfamethoxazole Allergy Anaphylaxis Verified 04/05/23 12:01 [From Bactrim] trimethoprim [From Bactrim] Allergy Anaphylaxis Verified 04/05/23 12:01 venom-honey bee Allergy Anaphylaxis Verified 04/05/23 12:01 [bee venom (honey bee)] Physical Exam Vitals: Vital Signs Temp Pulse Pulse Resp BP Pulse Ox 04/06/23 07:21 98.3 F 86 20 132/82 91 L 04/06/23 00:52 98.4 F 58 L 17 100/65 94 L 04/05/23 20:11 98.2 F 87 18 146/83 96 04/05/23 19:45 77 19 150/65 94 L 04/05/23 19:30 78 16 150/65 94 L 04/05/23 19:15 85 16 154/75 93 L 04/05/23 19:00 82 16 140/78 94 L 04/05/23 18:45 87 16 153/63 94 L 04/05/23 18:30 86 18 146/67 94 L 04/05/23 18:15 87 18 141/67 94 L 04/05/23 18:01 97.0 F L 105 H 20 118/81 95 Intake and Output 04/05/23 04/06/23 04/06/23 22:59 06:59 14:59 Intake Total 950 Output Total 200 Balance 750 Intake: IV 950 Output: Estimated Blood Loss 200 Other: # Voids 1 Weight 75.8 kg Results Labs: Abnormal Lab Results - Last 24 Hours (Table) 04/06/23 Range/Units 05:19 POC Glucose (mg/dL) 158 H (70-110) mg/dL
[2023-04-06 16:05] VITALS: BMI 30.5
[2023-04-06] MEDS: LACTATED RINGERS 1,000 ML IV SCH (19:32)
[2023-04-06] MEDS: ATORVASTATIN 40 MG TAB PO SCH (21:01)
[2023-04-06] MEDS: diazePAM 5 MG TAB PO PRN (21:52)
[2023-04-07] MEDS: oxyCODONE-APAP 5-325MG 1 EACH TAB PO PRN ×4 (00:11→19:53)
[2023-04-07] MEDS: VENLAFAXINE HCL ER 75 MG CAP PO SCH (07:52)
[2023-04-07] MEDS: LORazepam 0.5 MG TAB PO SCH ×3 (07:52→23:44)
[2023-04-07] MEDS: METOPROLOL TARTRATE 25 MG TAB PO SCH ×2 (07:52→19:52)
[2023-04-07] MEDS: THIAMINE 100 MG TAB PO SCH (07:52)
[2023-04-07] MEDS: MULTIVITAMINS, THERA 1 EACH TAB PO SCH (07:52)
[2023-04-07] MEDS: HYDROcodone/APAP 7.5-325MG 1 EACH TAB PO PRN ×3 (07:53→22:01)
[2023-04-07] MEDS ORDERED: KETOROLAC 15 MG/ML 1 ML VIAL IVP STA (08:45)
--- NOTE | 2023-04-07 08:49 | P.PN ---
Subjective Progress Note Date: 04/07/23 Principal diagnosis: Status post right reverse total shoulder arthroplasty This is a 57 year-old female post right reverse total shoulder arthroplasty. This is post-op day 2. The patient was evaluated at the bedside today. The patient denies nausea, vomiting, abdominal pain, shortness of breath, and chest pain this morning. She states her pain is still not controlled at this time. The patient has been up to the bathroom. Objective - Vital Signs Vital signs: Vital Signs Temp 98.9 F 04/07/23 07:32 Pulse 88 04/07/23 07:32 Resp 17 04/07/23 07:32 BP 131/75 04/07/23 07:32 Pulse Ox 93 L 04/07/23 07:32 FiO2 Intake & Output 04/06/23 04/07/23 04/07/23 18:59 06:59 18:59 Intake Total 240 10 Balance 240 10 Weight 75.8 kg Intake: IV 10 Invasive Line 3 10 Intake, IV Titration 240 Amount Lactated Ringers 1,000 ml 240 @ 20 mls/hr IV .Q24H [facility] Rx#:[id number] Other: # Voids 3 - Exam The patient does not appear in acute distress. Alert and orientated x3. Dressing is clean dry and intact. 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 Arm is soft. Good hand and wrist motion without difficulty. Sensation and circulatory status is intact. Assessment and Plan (1) Closed fracture of proximal end of right humerus Current Visit: Yes Status: Acute Code(s): S42.201A - UNSP FRACTURE OF UPPER END OF RIGHT HUMERUS, INIT SNOMED Code(s): 96981142 (2) Status post reverse arthroplasty of right shoulder Current Visit: Yes Status: Acute Code(s): Z96.611 - PRESENCE OF RIGHT ARTIFICIAL SHOULDER JOINT SNOMED Code(s): 91672569685377180 (3) COPD (chronic obstructive pulmonary disease) Current Visit: Yes Status: Acute Code(s): J44.9 - CHRONIC OBSTRUCTIVE PULMONARY DISEASE, UNSPECIFIED SNOMED Code(s): 25406694 Plan: 1. Continue pain control with Percocet on a regular basis, Flexeril and Toradol added today. May have Dilaudid PRN but start to wean if possible. 2. DVT prophylaxis with SCDs 3. Continue ambulation. Sling on when out of bed. 4. May work on elbow range of motion. No shoulder ROM. 5. Anticipate discharge home tomorrow once pain is controlled better.
[2023-04-07] MEDS: HYDROmorphone 1 MG/ML 1 ML SYRINGE IVP PRN ×4 (08:56→21:03)
[2023-04-07] MEDS: SYMBICORT 80-4.5 MCG INHALER INHALATION SCH ×2 (09:31→20:18)
[2023-04-07] MEDS: CYCLOBENZAPRINE 10 MG TAB PO PRN ×2 (09:32→16:52)
[2023-04-07] MEDS: LACTATED RINGERS 1,000 ML IV SCH (09:59)
--- NOTE | 2023-04-07 13:28 | P.PN ---
Subjective Progress Note Date: 04/07/23 patient is a 57-year-old lady with past medical history significant for COPD, hypertension, hyperlipidemia who presented to the hospital for elective right total shoulder arthroplasty. Patient recently fell on ice and was evaluated at [facility] and was found to have fracture of surgical neck of right humerus, patient was placed on sling and was told to follow up outpatient with orthopedics. Patient continued to have severe pain of right shoulder associated with stiffness and reduced range of motion. Orthopedics evaluated the patient and recommended surgery. Patient underwent right total shoulder arthroplasty on 04/05. Postoperatively internal medicine team was consulted for medical management 04/07. Patient seen and examined. Still having a lot of pain in right shoulder. Pain medication adjusted by orthopedics. Vital signs stable REVIEW OF SYSTEMS: CONSTITUTIONAL: No fever, no malaise,. CARDIOVASCULAR: No chest pain, no palpitations, no syncope. PULMONARY: No shortness of breath, no cough, GASTROINTESTINAL: No diarrhea, no nausea, no vomiting, no abdominal pain. NEUROLOGICAL: No headaches, no weakness, PHYSICAL EXAMINATION: GENERAL: The patient is alert and oriented x3, not in any acute distress. Well developed, well nourished. HEENT: Pupils are round and equally reacting to light. EOMI. No scleral icterus. No conjunctival pallor. Normocephalic, atraumatic. No pharyngeal erythema. No thyromegaly. CARDIOVASCULAR: S1 and S2 present. No murmurs, rubs, or gallops. PULMONARY: Chest is clear to auscultation, no wheezing or crackles. ABDOMEN: Soft, nontender, nondistended, normoactive bowel sounds. No palpable organomegaly. MUSCULOSKELETAL: Right shoulder surgical incision seen, drain in place EXTREMITIES: No cyanosis, clubbing, or pedal edema. NEUROLOGICAL: Gross neurological examination did not reveal any focal deficits. SKIN: No rashes. Assessment and plan Status post right reverse total shoulder arthroplasty Closed fracture of proximal end of right humerus COPD Hypertension Hyperlipidemia Depression Monitor vital signs Monitor CBC Monitor CMP Continue postop care per orthopedics Continue DVT prophylaxis per orthopedics Continue pain management per orthopedics PT and OT following Labs and medication were reviewed.. Continue same treatment. Continue with symptomatic treatment. Resume home medication. Monitor labs and vitals. DVT and GI prophylaxis. Further recommendations as per clinical course of the patient Dictation was produced using [employer] dictation software. please excuse any grammatical, word or spelling errors. Objective - Vital Signs Vital signs: Vital Signs Temp 98.9 F 04/07/23 07:32 Pulse 88 04/07/23 07:32 Resp 17 04/07/23 07:32 BP 131/75 04/07/23 07:32 Pulse Ox 93 L 04/07/23 07:32 FiO2 Intake & Output 04/06/23 04/07/23 04/07/23 18:59 06:59 18:59 Intake Total 240 10 Balance 240 10 Weight 75.8 kg Intake: IV 10 Invasive Line 3 10 Intake, IV Titration 240 Amount Lactated Ringers 1,000 ml 240 @ 20 mls/hr IV .Q24H [facility] Rx#:[id number] Other: # Voids 3
[2023-04-07] MEDS: KETOROLAC 15 MG/ML 1 ML VIAL IVP PRN ×2 (15:26→22:00)
[2023-04-07] MEDS: ATORVASTATIN 40 MG TAB PO SCH (19:53)
[2023-04-08] MEDS: HYDROmorphone 0.5 MG/0.5 ML SYRINGE IVP PRN (00:12)
[2023-04-08] MEDS: CYCLOBENZAPRINE 10 MG TAB PO PRN ×3 (06:01→20:55)
--- NOTE | 2023-04-08 08:44 | P.PN ---
Subjective Progress Note Date: 04/08/23 Principal diagnosis: Status post right reverse total shoulder arthroplasty This is a 57 year-old female post right reverse total shoulder arthroplasty. This is post-op day 3. The patient was evaluated at the bedside today. The patient denies nausea, vomiting, abdominal pain, shortness of breath, and chest pain this morning. She states her pain is better controlled at this time but still requiring Dilaudid. The patient has been up to the bathroom. Objective - Vital Signs Vital signs: Vital Signs Temp 98.4 F 04/08/23 07:05 Pulse 88 04/08/23 07:05 Resp 20 04/08/23 07:05 BP 105/67 04/08/23 07:05 Pulse Ox 92 L 04/08/23 07:05 FiO2 Intake & Output 04/07/23 04/08/23 04/08/23 18:59 06:59 18:59 Other: # Voids 5 3 - Exam The patient does not appear in acute distress. Alert and orientated x3. Dressing is clean dry and intact. 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 Arm is soft. Good hand and wrist motion without difficulty. Sensation and circulatory status is intact. Assessment and Plan (1) Closed fracture of proximal end of right humerus Current Visit: Yes Status: Acute Code(s): S42.201A - UNSP FRACTURE OF UPPER END OF RIGHT HUMERUS, INIT SNOMED Code(s): 31306813 (2) Status post reverse arthroplasty of right shoulder Current Visit: Yes Status: Acute Code(s): Z96.611 - PRESENCE OF RIGHT ARTIFICIAL SHOULDER JOINT SNOMED Code(s): 36667625015480480 (3) COPD (chronic obstructive pulmonary disease) Current Visit: Yes Status: Acute Code(s): J44.9 - CHRONIC OBSTRUCTIVE PULMONARY DISEASE, UNSPECIFIED SNOMED Code(s): 49151124 Plan: 1. Continue pain control with Percocet, Flexeril, and Toradol on a regular basis. May have Dilaudid PRN but start to wean if possible. 2. DVT prophylaxis with SCDs 3. Continue ambulation. Sling on when out of bed. 4. May work on elbow range of motion. No shoulder ROM. 5. Anticipate discharge home is probable for tomorrow.
[2023-04-08] MEDS: SYMBICORT 80-4.5 MCG INHALER INHALATION SCH ×2 (08:48→20:25)
[2023-04-08] MEDS: MULTIVITAMINS, THERA 1 EACH TAB PO SCH (09:18)
[2023-04-08] MEDS: HYDROcodone/APAP 7.5-325MG 1 EACH TAB PO PRN (09:18)
[2023-04-08] MEDS: VENLAFAXINE HCL ER 75 MG CAP PO SCH (09:18)
[2023-04-08] MEDS: LORazepam 0.5 MG TAB PO SCH ×3 (09:18→21:55)
[2023-04-08] MEDS: THIAMINE 100 MG TAB PO SCH (09:19)
[2023-04-08] MEDS: METOPROLOL TARTRATE 25 MG TAB PO SCH (09:19)
[2023-04-08] MEDS: KETOROLAC 15 MG/ML 1 ML VIAL IVP PRN ×2 (09:24→14:41)
[2023-04-08] MEDS: LACTATED RINGERS 1,000 ML IV SCH (09:29)
[2023-04-08] MEDS: oxyCODONE-APAP 5-325MG 1 EACH TAB PO PRN ×3 (12:40→20:55)
--- NOTE | 2023-04-08 14:40 | P.PN ---
Subjective Progress Note Date: 04/08/23 patient is a 57-year-old lady with past medical history significant for COPD, hypertension, hyperlipidemia who presented to the hospital for elective right total shoulder arthroplasty. Patient recently fell on ice and was evaluated at [facility] and was found to have fracture of surgical neck of right humerus, patient was placed on sling and was told to follow up outpatient with orthopedics. Patient continued to have severe pain of right shoulder associated with stiffness and reduced range of motion. Orthopedics evaluated the patient and recommended surgery. Patient underwent right total shoulder arthroplasty on 04/05. Postoperatively internal medicine team was consulted for medical management 04/07. Patient seen and examined. Still having a lot of pain in right shoulder. Pain medication adjusted by orthopedics. Vital signs stable 04/08. Patient seen and examined. States right shoulder pain has slightly improved compared to yesterday. Patient is ambulating without any problem. REVIEW OF SYSTEMS: CONSTITUTIONAL: No fever, no malaise,. CARDIOVASCULAR: No chest pain, no palpitations, no syncope. PULMONARY: No shortness of breath, no cough, GASTROINTESTINAL: No diarrhea, no nausea, no vomiting, no abdominal pain. NEUROLOGICAL: No headaches, no weakness, PHYSICAL EXAMINATION: GENERAL: The patient is alert and oriented x3, not in any acute distress. Well developed, well nourished. HEENT: Pupils are round and equally reacting to light. EOMI. No scleral icterus. No conjunctival pallor. Normocephalic, atraumatic. No pharyngeal erythema. No thyromegaly. CARDIOVASCULAR: S1 and S2 present. No murmurs, rubs, or gallops. PULMONARY: Chest is clear to auscultation, no wheezing or crackles. ABDOMEN: Soft, nontender, nondistended, normoactive bowel sounds. No palpable organomegaly. MUSCULOSKELETAL: Right shoulder surgical incision seen, wound VAC seen EXTREMITIES: No cyanosis, clubbing, or pedal edema. NEUROLOGICAL: Gross neurological examination did not reveal any focal deficits. SKIN: No rashes. Assessment and plan Status post right reverse total shoulder arthroplasty Closed fracture of proximal end of right humerus COPD Hypertension Hyperlipidemia Depression Monitor vital signs Monitor CBC Monitor CMP Continue postop care per orthopedics Continue DVT prophylaxis per orthopedics Continue pain management per orthopedics, orthopedic and plan to wean patient off Dilaudid, possible discharge in next 24 hours PT and OT following Labs and medication were reviewed.. Continue same treatment. Continue with symptomatic treatment. Resume home medication. Monitor labs and vitals. DVT and GI prophylaxis. Further recommendations as per clinical course of the patient Dictation was produced using [employer] dictation software. please excuse any grammatical, word or spelling errors. Objective - Vital Signs Vital signs: Vital Signs Temp 98.4 F 04/08/23 07:05 Pulse 88 04/08/23 07:05 Resp 20 04/08/23 11:51 BP 105/67 04/08/23 07:05 Pulse Ox 92 L 04/08/23 07:05 FiO2 Intake & Output 04/07/23 04/08/23 04/08/23 18:59 06:59 18:59 Weight 75.8 kg Other: Voiding Method Toilet # Voids 5 3
[2023-04-08] MEDS: diazePAM 5 MG TAB PO PRN (14:41)
[2023-04-08] MEDS: ATORVASTATIN 40 MG TAB PO SCH (20:55)
[2023-04-08 22:10] VITALS: RESP 18
[2023-04-09] MEDS: METOPROLOL TARTRATE 25 MG TAB PO SCH ×2 (00:42→08:57)
[2023-04-09] MEDS: KETOROLAC 15 MG/ML 1 ML VIAL IVP PRN ×2 (01:06→09:42)
[2023-04-09] MEDS: diazePAM 5 MG TAB PO PRN (01:06)
[2023-04-09 08:02] VITALS: BP 112/71; PULSE 76; TEMP 97.4
[2023-04-09] MEDS: LORazepam 0.5 MG TAB PO SCH (08:53)
[2023-04-09] MEDS: VENLAFAXINE HCL ER 75 MG CAP PO SCH (08:55)
[2023-04-09] MEDS: oxyCODONE-APAP 5-325MG 1 EACH TAB PO PRN (08:56)
[2023-04-09] MEDS: THIAMINE 100 MG TAB PO SCH (08:57)
[2023-04-09] MEDS: MULTIVITAMINS, THERA 1 EACH TAB PO SCH (08:57)
--- NOTE | 2023-04-09 08:58 | P.DS ---
Providers Date of admission: 04/05/23 11:05 Expected date of discharge: 04/09/23 Attending physician: Ama Thomas DO Consults: 04/05/23 13:22 Consult Physician Routine Consulting Provider: Karlie Huitron Consult Reason/Comments: medical management Do you want consulting provider notified?: Yes Primary care physician: Stephen Choudhary Kut - Discharge Diagnosis(es) (1) Closed fracture of proximal end of right humerus Current Visit: Yes Status: Acute (2) Status post reverse arthroplasty of right shoulder Current Visit: Yes Status: Acute (3) COPD (chronic obstructive pulmonary disease) Current Visit: Yes Status: Acute Hospital Course: This is a 57-year-old female who fell and sustained a displaced fracture to the proximal humerus and presented to the office to discuss treatment options. After discussion and consideration the patient elects to proceed with right reverse total shoulder arthroplasty. The patient is seen preoperatively by their family physician and cleared for surgery. The patient is admitted to [facility] on 04/05/2023 for right reverse total shoulder arthroplasty. She is doing well postoperatively. Vital signs and hemoglobin are stable. The patient is able to get up out of bed independently and is ambulating without assistance. Pain control has been an issue but is getting better. Patient is discharged to home on postoperative day #4 in good condition. Please see med rec for accurate list of home medications. Patient Condition at Discharge: Stable Plan - Discharge Summary Discharge Rx Participant: No New Discharge Prescriptions: New oxyCODONE HCL/ACETAMINOPHEN [Percocet 5-325 mg] 1 tab PO Q4HR PRN #30 tab PRN Reason: Pain Sennosides-Docusate Sodium [Senokot-S] 2 tab PO DAILY #30 tablet Ketorolac [Toradol] 10 mg PO Q6HR #20 tab Cyclobenzaprine [Flexeril] 10 mg PO TID PRN #28 tab PRN Reason: Muscle Spasm No Action Rosuvastatin [Crestor] 20 mg PO HS Ibuprofen [Motrin] 800 mg PO Q8H PRN PRN Reason: Pain Albuterol Inhaler [Ventolin Hfa Inhaler] 1 - 2 puff INHALATION RT-Q4H PRN PRN Reason: Shortness Of Breath Or Wheezing Ipratropium-Albuterol Nebulize [Duoneb 0.5 mg-3 mg/3 ml Soln] 3 ml INHALATION RT-QID PRN PRN Reason: Shortness Of Breath LORazepam [Ativan] 0.5 mg PO TID Budesonide/Formoterol Fumarate [Symbicort 80-4.5 Mcg Inhaler] 2 puff INHALATION RT-BID EPINEPHrine (Auto Inject) [Epipen] 0.3 mg IM ONCE PRN PRN Reason: Anaphylaxis Multivitamins, Thera [Multivitamin (formulary)] 1 tab PO DAILY Thiamine [Vitamin B-1] 100 mg PO DAILY #30 tab Venlafaxine HCl [Effexor XR] 225 mg PO DAILY Metoprolol Tartrate [Lopressor] 12.5 mg PO BID hydrOXYzine HCL [Atarax] 20 - 30 mg PO Q8H PRN PRN Reason: anxiety/itching Discharge Medication List Budesonide/Formoterol Fumarate [Symbicort 80-4.5 Mcg Inhaler] 2 puff INHALATION RT-BID 12/29/22 [History] EPINEPHrine (Auto Inject) [Epipen] 0.3 mg IM ONCE PRN 12/29/22 [History] Ibuprofen [Motrin] 800 mg PO Q8H PRN 12/29/22 [History] Multivitamins, Thera [Multivitamin (formulary)] 1 tab PO DAILY 12/29/22 [History] Rosuvastatin [Crestor] 20 mg PO HS 12/29/22 [History] Thiamine [Vitamin B-1] 100 mg PO DAILY #30 tab 12/31/22 [Rx] Albuterol Inhaler [Ventolin Hfa Inhaler] 1 - 2 puff INHALATION RT-Q4H PRN 01/15/23 [History] Ipratropium-Albuterol Nebulize [Duoneb 0.5 mg-3 mg/3 ml Soln] 3 ml INHALATION RT-QID PRN 03/13/23 [History] LORazepam [Ativan] 0.5 mg PO TID 03/13/23 [History] Metoprolol Tartrate [Lopressor] 12.5 mg PO BID 03/13/23 [History] Venlafaxine HCl [Effexor XR] 225 mg PO DAILY 03/13/23 [History] hydrOXYzine HCL [Atarax] 20 - 30 mg PO Q8H PRN 03/13/23 [History] Cyclobenzaprine [Flexeril] 10 mg PO TID PRN #28 tab 04/09/23 [Rx] Ketorolac [Toradol] 10 mg PO Q6HR #20 tab 04/09/23 [Rx] Sennosides-Docusate Sodium [Senokot-S] 2 tab PO DAILY #30 tablet 04/09/23 [Rx] oxyCODONE HCL/ACETAMINOPHEN [Percocet 5-325 mg] 1 tab PO Q4HR PRN #30 tab 04/09/23 [Rx] Follow up Appointment(s)/Referral(s): Mee Carballo NPC [Nurse Practitioner] - 04/16/23 10:50 am Stephne Tracy [Primary Care Provider] - 04/15/23 8:45 am () Activity/Diet/Wound Care/Special Instructions: Keep Prevena wound vac in place for 1 week. May remove at home and throw away next Wednesday04/12/2023. May shower with battery pack covered. Ice to shoulder Keep arm in sling but may come out for elbow range of motion exercises. May take over the counter stool softeners as needed for constipation due to pain medication. Follow up in 2 weeks with Mee Carballo NP. Call [facility] with any questions or concerns, Discharge Disposition: HOME SELF-CARE
[2023-04-09] MEDS: SYMBICORT 80-4.5 MCG INHALER INHALATION SCH (08:59)
--- NOTE | 2023-04-09 09:43 | P.OP ---
Date of Procedure: 04/05/23 Preoperative Diagnosis: Right proximal humerus fracture Postoperative Diagnosis: same Procedure(s) Performed: Right reverse total shoulder arthroplasty Implants: Biomet Comprehensive Reverse total shoulder Size 8 fracture stem, 36mm standard poly, Mini baseplate, standard glenosphere with minimal offset Anesthesia: GONZALEZ Surgeon: Ama Thomas Cassandra Architect #1: Mee Carballo Estimated Blood Loss (ml): 200 Pathology: other Condition: stable Disposition: PACU Indications for Procedure: Patient fell sustaining a 4 part displaced proximal humerus fracture on 03/28/23. Her fracture is quite displaced. We talked about treatment options and she would like to proceed with reverse total shoulder arthroplasty. Description of Procedure: The patient, operative extremity, and procedure were identified in the preop holding area. Decision was made by the anesthesia team not to perform a block given her COPD. After informed consent was obtained, she was brought back to the OR where she was placed under general and placed in the beach chair position. All bony and neurovascular structures were well padded. The upper extremity was then prepped and draped in normal sterile fashion. An oblique incision was then made from the corocoid towards the attachment of the deltoid. Dissection was carried down to the delto pec interval and the cephalic vein was identified and mobilized laterally. About 5mm of the pectoralis insertion was released. A james elevator was swept under the acormion to clear the subdeltoid space. The conjoined tendon was identified and the clavipectoral fascia was released to allow for placement of the ladi retractor. The biceps tendon was located in the groove and released. A tenodesis was performed distal to the bicipital groove with an 0 vicyrl. A james elevator was inserted between The greater and lesser tuberosities and these were freed from the surrounding callous. The subscapularis was carefully freed and the tendon and lesser tuberosity was tucked medially. A ronguer was utilized to remove the remaining collapsed head in a piecemeal fashion. The greater tuberosity was freed from and smaller fragments were removed. Both tuberosities were tagged with #3 fiberwire. Attention was then turned to the glenoid. The biceps tendon was followed to the labrum which was removed using bovey cautery. The axillary nerve was palpated and protected. The edges of the glenoid were exposed. The aiming guide was used to insert the guide pin at the center of the glenoid. The appropriate reamers were utilized to create the bleediing bone base for the glenoid. The central hold was drilled and the base plate was inserted with the central nonlocking scew. Locking screws were placed in the remaining holes of the baseplate. A standard glenosphere was selected. Attention was then turned to the humerus. The metaphasis of the fracture was comminuted laterally. Reamers were inserted and a size 9 had a good fit distally. Given the comminution, decision was made to cement. The canal was cleaned and dried while the cement was mixed. A drill hole was made in the medial side of the metaphyseal bone for the tuberosity repair. The cement was finger packed over the intramedullary plug. The size 8 fracture stem was them inserted with the lateral aspect 5cm superior to the insertion of the pectoralis tendon. The 30 deg retroversion and height were stabilized while the cement cured. The standard poly tray and poly trial were inserted and found to be a good fit. The final implants were opened and were impacted into place. Final reduction of the joint again showed good stability and tension with appropriate range of motion. The construct was copiously irrigated with pulse lavage. The tuberosities were reduced and fixed with an around the [place] construct with #3 fiberwire sutures. The wound was closed in a layered fashion with 0 vicryl, 3.0 vicryl, 4.0 monocryl, and skin glue. Wound was dressed with a provena dressing.
--- NOTE | 2023-04-09 12:17 | P.PN ---
Subjective Progress Note Date: 04/09/23 patient is a 57-year-old lady with past medical history significant for COPD, hypertension, hyperlipidemia who presented to the hospital for elective right total shoulder arthroplasty. Patient recently fell on ice and was evaluated at [facility] and was found to have fracture of surgical neck of right humerus, patient was placed on sling and was told to follow up outpatient with orthopedics. Patient continued to have severe pain of right shoulder associated with stiffness and reduced range of motion. Orthopedics evaluated the patient and recommended surgery. Patient underwent right total shoulder arthroplasty on 04/05. Postoperatively internal medicine team was consulted for medical management 04/07. Patient seen and examined. Still having a lot of pain in right shoulder. Pain medication adjusted by orthopedics. Vital signs stable 04/08. Patient seen and examined. States right shoulder pain has slightly improved compared to yesterday. Patient is ambulating without any problem. 04/09. Patient seen and examined. Patient medically stable for discharge REVIEW OF SYSTEMS: CONSTITUTIONAL: No fever, no malaise,. CARDIOVASCULAR: No chest pain, no palpitations, no syncope. PULMONARY: No shortness of breath, no cough, GASTROINTESTINAL: No diarrhea, no nausea, no vomiting, no abdominal pain. NEUROLOGICAL: No headaches, no weakness, PHYSICAL EXAMINATION: GENERAL: The patient is alert and oriented x3, not in any acute distress. Well developed, well nourished. HEENT: Pupils are round and equally reacting to light. EOMI. No scleral icterus. No conjunctival pallor. Normocephalic, atraumatic. No pharyngeal erythema. No thyromegaly. CARDIOVASCULAR: S1 and S2 present. No murmurs, rubs, or gallops. PULMONARY: Chest is clear to auscultation, no wheezing or crackles. ABDOMEN: Soft, nontender, nondistended, normoactive bowel sounds. No palpable organomegaly. MUSCULOSKELETAL: Right shoulder surgical incision seen, wound VAC seen EXTREMITIES: No cyanosis, clubbing, or pedal edema. NEUROLOGICAL: Gross neurological examination did not reveal any focal deficits. SKIN: No rashes. Assessment and plan Status post right reverse total shoulder arthroplasty Closed fracture of proximal end of right humerus COPD Hypertension Hyperlipidemia Depression Monitor vital signs Monitor CBC Monitor CMP Continue postop care per orthopedics Continue DVT prophylaxis per orthopedics Continue pain management per orthopedics PT and OT following Labs and medication were reviewed.. Continue same treatment. Continue with symptomatic treatment. Resume home medication. Monitor labs and vitals. DVT and GI prophylaxis. Further recommendations as per clinical course of the patient Dictation was produced using [employer] dictation software. please excuse any grammatical, word or spelling errors. Objective - Vital Signs Vital signs: Vital Signs Temp 97.4 F L 04/09/23 07:54 Pulse 76 04/09/23 07:54 Resp 18 04/09/23 07:54 BP 112/71 04/09/23 07:54 Pulse Ox 99 04/09/23 07:54 FiO2 Intake & Output 04/08/23 04/09/23 04/09/23 18:59 06:59 18:59 Intake Total 200 Balance 200 Weight 75.8 kg Intake: Oral 200 Other: Voiding Method Toilet # Voids 4 1
== END 2023-04-09 13:46 | disposition home or self-care (01) | DRG 483 ==
LOC: OR 11:04 → 4SSUR 11:05 → OR 11:05 → OBSVTOIN 11:05 → 4SSUR 19:53
PROVIDERS: ADMIT Orthopaedic Surgery Hand Surgery; ATTEND Orthopaedic Surgery Hand Surgery
PROC: 0RRJ00Z Replacement of Right Shoulder Joint with Reverse Ball and Socket Synthetic Substitute, Open Approach (ICD-10-PCS; principal; 2023-04-05 13:00)
DX: S42.241A 4-part fracture of surgical neck of right humerus, initial encounter for closed fracture (principal); I10 Essential (primary) hypertension; F32.A Depression, unspecified; E78.5 Hyperlipidemia, unspecified; F17.210 Nicotine dependence, cigarettes, uncomplicated; J44.89 Other specified chronic obstructive pulmonary disease; M79.7 Fibromyalgia; W00.0XXA Fall on same level due to ice and snow, initial encounter; Z79.51 Long term (current) use of inhaled steroids; Z79.899 Other long term (current) drug therapy; Z86.14 Personal history of Methicillin resistant Staphylococcus aureus infection; Z88.0 Allergy status to penicillin; Z88.2 Allergy status to sulfonamides; Z88.1 Allergy status to other antibiotic agents; Z91.030 Bee allergy status
CPT/HCPCS: 88305; 88311; 94640

== ENCOUNTER 2023-08-13 15:59 | Emergency (ER) | payer MEDICARE ==
[2023-08-13 16:26] VITALS: RESP 18
--- NOTE | 2023-08-13 17:45 | ED ---
Psych HPI - General Chief Complaint: Psychiatric Symptoms Stated Complaint: Mental Health-Petitioned Time Seen by Provider: 08/13/23 16:50 Source: patient, police Mode of arrival: ambulatory - History of Present Illness Initial Comments: 58-year-old female who presents to the emergency department for mental health evaluation. Patient was brought in on a court order petition. Petition was filled out by the patient's sister who states that she is depressed and not coping well with the of her son. She states that she is not following up with [facility]. She is concerned about her drinking. When speaking with the patient she states that she is in the process of getting help. She has an appointment next week with [facility]. She denies any current suicidal or homicidal ideations. Does admit to depression because of the loss of her son however states that she feels like she is grieving normally. She admits that she drinks too much alcohol. No alcohol intake today. Last drink was 3 days ago. She denies tremors, headache. She did have 1 episode of vomiting yesterday. Denies any hallucinations. No other alleviating, precipitating or modifying factors - Related Data Home Medications Medication Instructions Recorded Confirmed Budesonide/Formoterol Fumarate 2 puff INHALATION RT-BID 12/29/22 08/13/23 [Symbicort 80-4.5 Mcg Inhaler] EPINEPHrine (Auto Inject) [Epipen] 0.3 mg IM ONCE PRN 12/29/22 08/13/23 Ibuprofen [Motrin] 800 mg PO Q8H PRN 12/29/22 08/13/23 Multivitamins, Thera [Multivitamin 1 tab PO DAILY 12/29/22 08/13/23 (formulary)] Rosuvastatin [Crestor] 20 mg PO HS 12/29/22 08/13/23 Albuterol Inhaler [Ventolin Hfa 1 - 2 puff INHALATION RT-Q4H PRN 01/15/23 08/13/23 Inhaler] Ipratropium-Albuterol Nebulize 3 ml INHALATION RT-QID PRN 03/13/23 08/13/23 [Duoneb 0.5 mg-3 mg/3 ml Soln] LORazepam [Ativan] 0.5 mg PO TID PRN 03/13/23 08/13/23 Metoprolol Tartrate [Lopressor] 12.5 mg PO BID-W/MEALS 03/13/23 08/13/23 Venlafaxine HCl [Effexor XR] 225 mg PO DAILY 03/13/23 08/13/23 hydrOXYzine HCL [Atarax] 20 - 30 mg PO Q8H PRN 03/13/23 08/13/23 Acetaminophen Tab [Tylenol Tab] 1,000 mg PO Q6HR PRN 08/13/23 08/13/23 Cyclobenzaprine [Flexeril] 10 mg PO BID PRN 08/13/23 08/13/23 Previous Rx's Medication Instructions Recorded Cephalexin [Keflex] 500 mg PO BID #14 cap 08/13/23 Allergies Allergy/AdvReac Type Severity Reaction Status Date / Time azithromycin [From Zithromax] Allergy Anaphylaxis Verified 08/13/23 20:12 erythromycin base Allergy Anaphylaxis Verified 08/13/23 20:12 Penicillins Allergy Anaphylaxis Verified 08/13/23 20:12 Sulfa (Sulfonamide Allergy Anaphylaxis Verified 08/13/23 20:12 Antibiotics) sulfamethoxazole Allergy Anaphylaxis Verified 08/13/23 20:12 [From Bactrim] trimethoprim [From Bactrim] Allergy Anaphylaxis Verified 08/13/23 20:12 venom-honey bee Allergy Anaphylaxis Verified 08/13/23 20:12 [bee venom (honey bee)] Review of Systems ROS Statement: Those systems with pertinent positive or pertinent negative responses have been documented in the HPI. ROS Other: All systems not noted in ROS Statement are negative. Past Medical History Past Medical History: Asthma, COPD, Fibromyalgia, Pneumonia Additional Past Medical History / Comment(s): anxiety History of Any Multi-Drug Resistant Organisms: MRSA Date of last positivie culture/infection: 1999 MDRO Source:: buttocks Past Surgical History: Section, Hysterectomy, Orthopedic Surgery, Tubal Ligation Additional Past Surgical History / Comment(s): rt hand surgery Past Anesthesia/Blood Transfusion Reactions: No Reported Reaction Past Psychological History: Anxiety, Bipolar, Depression Smoking Status: Current every day smoker Past Alcohol Use History: Occasional Past Drug Use History: Marijuana - Past Family History Father Family Medical History: Cancer Additional Family Medical History / Comment(s): Father from throat cancer. He also suffered from depression and attempted suicide. Mother Family Medical History: Congestive Heart Failure (CHF), COPD Additional Family Medical History / Comment(s): Mother is from heart failure with probable history of bipolar disorder. Sister(s) Family Medical History: COPD Additional Family Medical History / Comment(s): Patient has 2 sisters one with COPD and one with depression. Patient does not have any brothers. Daughter(s) Family Medical History: Asthma Son(s) Family Medical History: No Reported History General Exam Limitations: no limitations General appearance: alert, in no apparent distress Head exam: Present: atraumatic, normocephalic, normal inspection Eye exam: Present: normal appearance, PERRL, EOMI. Absent: scleral icterus, conjunctival injection, periorbital swelling ENT exam: Present: normal exam, mucous membranes moist Neck exam: Present: normal inspection. Absent: tenderness, meningismus, lymphadenopathy Respiratory exam: Present: normal lung sounds bilaterally. Absent: respiratory distress, wheezes, rales, rhonchi, stridor Cardiovascular Exam: Present: regular rate, normal rhythm, normal heart sounds. Absent: systolic murmur, diastolic murmur, rubs, gallop, clicks GI/Abdominal exam: Present: soft, normal bowel sounds. Absent: distended, tenderness, guarding, rebound, rigid Extremities exam: Present: normal inspection, full ROM, normal capillary refill. Absent: tenderness, pedal edema, joint swelling, calf tenderness Back exam: Present: normal inspection Neurological exam: Present: alert, oriented X3, CN II-XII intact Psychiatric exam: Present: normal affect, normal mood Skin exam: Present: warm, dry, intact, normal color. Absent: rash Course Vital Signs 08/13/23 08/13/23 08/13/23 16:16 19:48 22:36 Temperature 98.8 F 98.1 F Pulse Rate 122 H 95 92 Respiratory 18 18 18 Rate Blood Pressure 144/76 128/79 152/89 O2 Sat by Pulse 95 97 94 L Oximetry Medical Decision Making - Medical Decision Making Was pt. sent in by a medical professional or institution (, PA, BUSINESS EXECUTIVE, urgent care, hospital, or skilled nursing...) When possible be specific @ -Patient was brought in by police Did you speak to anyone other than the patient for history (EMS, parent, family, police, friend...)? What history was obtained from this source @ -Spoke with the patient's friend Did you review nursing and triage notes (agree or disagree)? Why? @ -I reviewed and agree with nursing and triage notes Were old charts reviewed (outside hosp., previous admission, EMS record, old EKG, old radiological studies, urgent care reports/EKG's, skilled nursing records)? Report findings @ -I reviewed the patient's court order petition Differential Diagnosis (chest pain, altered mental status, abdominal pain women, abdominal pain men, vaginal bleeding, weakness, fever, dyspnea, syncope, headache, dizziness, GI bleed, back pain, seizure, CVA, palpatations, mental health, musculoskeletal)? @ -Differential Mental Health Depression, anxiety, bipolar, psychosis, schizophrenia, borderline personality, situational depression, adjustment disorder, behavioral disorder, brain tumor, malingering, substance abuse, encephalopathy, medication reaction, dementia, hypothyroidism, degenerative neurologic disorder, lupus.... This is not meant to be all-inclusive list EKG interpreted by me (3pts min.). @ -Not done X-rays interpreted by me (1pt min.). @ -None done CT interpreted by me (1pt min.). @ -None done U/S interpreted by me (1pt. min.). @ -None done What testing was considered but not performed or refused? (CT, X-rays, U/S, labs)? Why? @ -None What meds were considered but not given or refused? Why? @ -None Did you discuss the management of the patient with other professionals (professionals i.e. , PA, BUSINESS EXECUTIVE, lab, RT, psych nurse, manager social responsibility, lead handler, teacher, chief fundraising officer, community case manager)? Give summary @ -Spoke with the EPS nurse in regards to the case Was smoking cessation discussed for >3mins.? @ -No Was critical care preformed (if so, how long)? @ -No Were there social determinants of health that impacted care today? How? (Homelessness, low income, unemployed, alcoholism, drug addiction, transportation, low edu. Level, literacy, decrease access to med. care, alf, rehab)? @ -No Was there de-escalation of care discussed even if they declined (Discuss DNR or withdrawal of care, Hospice)? DNR status @ -No What co-morbidities impacted this encounter? (DM, HTN, Smoking, COPD, CAD, Cancer, CVA, ARF, Chemo, Hep., AIDS, mental health diagnosis, sleep apnea, morbid obesity)? @ -EtOH abuse, depression Was patient admitted / discharged? Hospital course, mention meds given and route, prescriptions, significant lab abnormalities, going to OR and other pertinent info. @ -Upon arrival patient was seen and evaluated by myself. She is court ordered petition and. She does require EPS evaluation. EPS does evaluate the patient and deemed that she is stable for discharge home. She is not suicidal or homicidal. Patient does fill out a safety plan. She is discharged in stable condition Undiagnosed new problem with uncertain prognosis? @ -No Drug Therapy requiring intensive monitoring for toxicity (Heparin, Nitro, Insuli n, Cardizem)? @ -No Were any procedures done? @ -No Diagnosis/symptom? @ -Acute depression Acute, or Chronic, or Acute on Chronic? @ -Acute Uncomplicated (without systemic symptoms) or Complicated (systemic symptoms)? @ -Complicated Side effects of treatment? @ -No Exacerbation, Progression, or Severe Exacerbation? @ -No Poses a threat to life or bodily function? How? (Chest pain, [place], [place], pneumonia, PE, COPD, DKA, ARF, appy, cholecystitis, CVA, Diverticulitis, Homicidal, Suicidal, threat to staff... and all critical care pts) @ -No - Lab Data Lab Results 08/13/23 Range/Units 18:10 Urine Color Light Yellow Urine Appearance Clear (Clear) Urine pH 7.0 (5.0-8.0) Ur Specific [place] 1.009 (1.001-1.035) Urine Protein Negative (Negative) Urine Glucose (UA) Negative (Negative) Urine Ketones Negative (Negative) Urine Blood Negative (Negative) Urine Nitrite Positive H (Negative) Urine Bilirubin Negative (Negative) Urine Urobilinogen <2.0 (<2.0) mg/dL Ur Leukocyte Esterase Trace H (Negative) Urine RBC <1 (0-5) /hpf Urine WBC 2 (0-5) /hpf Ur Squamous Epith Cells 3 (0-4) /hpf Urine Bacteria Few H (None) /hpf Urine Mucus Rare H (None) /hpf Urine Opiates Screen Not Detected (NotDetected) Ur Oxycodone Screen Not Detected (NotDetected) Urine Methadone Screen Not Detected (NotDetected) Ur Barbiturates Screen Not Detected (NotDetected) U Tricyclic Antidepress Not Detected (NotDetected) Ur Phencyclidine Scrn Not Detected (NotDetected) Ur Amphetamines Screen Not Detected (NotDetected) U Methamphetamines Scrn Not Detected (NotDetected) U Benzodiazepines Scrn Detected H (NotDetected) Urine Cocaine Screen Not Detected (NotDetected) U Marijuana (THC) Screen Detected H (NotDetected) Disposition Clinical Impression: Depression, UTI (urinary tract infection) Disposition: HOME SELF-CARE Condition: Stable Instructions (If sedation given, give patient instructions): Depression (ED) Prescriptions: Cephalexin [Keflex] 500 mg PO BID #14 cap Is patient prescribed a controlled substance at d/c from ED?: No Referrals: Stephen Tracy [Primary Care Provider] - 1-2 days Time of Disposition: 21:44
[2023-08-13 18:56] LABS: Appearance,Urine Clear (Clear); Bacteria,Urine Few /hpf; Bilirubin,Urine Negative (Negative); Blood,Urine Negative (Negative); Color,Urine Light Yellow; Glucose,Urine (UA) Negative (Negative); Ketones,Urine Negative (Negative); Leukocyte Esterase,Urine Trace (Negative); Mucus,Urine Rare /hpf; Nitrite,Urine Positive (Negative); Protein,Urine Negative (Negative); RBC,Urine <1 /hpf (0-5); Specific Gravity,Urine 1.009 (1.001-1.035); Squamous Epithelial Cell,Urine 3 /hpf (0-4); Urobilinogen,Urine <2.0 mg/dL (<2.0); WBC,Urine 2 /hpf (0-5)
[2023-08-13 19:16] LABS: Amphetamine Screen,Urine Not Detected (NotDetected); Barbiturate Screen,Urine Not Detected (NotDetected); Benzodiazepines Screen,Urine Detected (NotDetected); Cocaine Screen,Urine Not Detected (NotDetected); Methadone Screen, Urine Not Detected (NotDetected); Opiate Screen,Urine Not Detected (NotDetected); Oxycodone Screen, Urine Not Detected (NotDetected); Phencyclidine Screen,Urine Not Detected (NotDetected); Tricyclic Antidepressant,Urine Not Detected (NotDetected); Urn Cannabinoid Scrn Detected (NotDetected)
[2023-08-13] MEDS: CEPHALEXIN 500 MG CAP PO STA (19:47)
[2023-08-13 22:58] VITALS: BP 152/89; PULSE 92; TEMP 98.1
== END 2023-08-13 22:36 | disposition home or self-care (01) ==
LOC: EC 15:59
DX: N39.0 Urinary tract infection, site not specified (principal); F32.A Depression, unspecified; F10.10 Alcohol abuse, uncomplicated; F17.200 Nicotine dependence, unspecified, uncomplicated; Z88.0 Allergy status to penicillin; Z88.1 Allergy status to other antibiotic agents; Z88.2 Allergy status to sulfonamides; Z91.030 Bee allergy status
CPT/HCPCS: 80306; 81001; 82075; 99284